=== PATIENT | female | born 1935 | race Caucasian/White ===

== ENCOUNTER 2019-04-10 12:57 | Outpatient (CLI) | payer MEDICARE, SELFPAY ==
--- NOTE | ~2019-04-10 | XR_ITS ---
EXAMINATION: XR chest 2V DATE: 04/10/2019 13:19 INDICATION: Chronic obstructive pulmonary disease. TECHNIQUE: Frontal and lateral views of the chest were obtained. COMPARISON: Chest 2 views 09/22/2017 FINDINGS: There is mild atelectasis versus scarring in the lower lung zones. No pleural effusion or p neumothorax. The heart size is normal. IMPRESSION: 1. Mild atelectasis versus scarring in the lower lung zones. Reviewed, dictated and finalized at location A. [employer]OR
== END 2019-04-10 12:58 | disposition home or self-care (01) ==
LOC: CHSIMG 13:02
PROVIDERS: PCP Internal Medicine; Visit Provider Internal Medicine
DX: J44.9 Chronic obstructive pulmonary disease, unspecified (principal)
CPT/HCPCS: 71046

== ENCOUNTER 2019-10-26 08:58 | Emergency (ER) | payer MEDICARE, SELFPAY ==
--- NOTE | ~2019-10-26 | CT_ITS ---
EXAMINATION: CT lumbar spine [facility] EXAM DATE: 10/26/2019 11:21 INDICATION: Low back pain radiating down right leg. TECHNIQUE: Spiral CT of the lumbar spine was performed without contrast. Axial, coronal and sagittal images were reviewed. The dose-length product (DLP) for this examination was 1294.99 mGy-cm. The exposure was tailored according to patient size (auto mA exposure control), and iterative reconstruct ion (ASIR) was used as additional dose reduction technique. There is no prior study for comparison. FINDINGS: There is mild loss of all lumbar vertebral body heights without acute fracture line identif ied. There is 2-3 mm retrolisthesis L1 on L2, 3 mm retrolisthesis L2 on L3, 2 mm anterolisthesis L3 o n L4, 4 mm anterolisthesis L4 on L5. Mild to moderate disc disease at L3-4, L4-5 and L5-S1. Prior singh inotomies L3-L5. Sacrum is unremarkable. There is small sliding gastroesophageal hiatal hernia. Some dependent posterior airspace disease bilaterally most likely atelectasis. Normal appendix. Level by level evaluation: T12-L1: Disc does not extend beyond the endplate margin. Facet arthropathy: Mild. Neural foraminal stenosis: No stenosis. Central canal stenosis: No stenosis. L1-L2: There is a mild diffuse disc bulge. Facet arthropathy: Mild. Neural foraminal stenosis: Mild to moderate left, mild right. Central canal stenosis: Mild. L2-L3: There is a moderate diffuse disc bulge. Facet arthropathy: Moderate. Neural foraminal stenosis: Moderate right, mild to moderate left. Central canal stenosis: Moderate. L3-L4: There is a moderate diffuse disc bulge. Facet arthropathy: Moderate to severe. Neural foraminal stenosis: Moderate to severe left, moderate right. Central canal stenosis: Moderate to severe. L4-L5: There is a moderate diffuse disc bulge. Facet arthropathy: Severe. Neural foraminal stenosis: Moderate to severe bilateral. Central canal stenosis: Moderate to severe. L5-S1: There is a mild diffuse disc bulge. Facet arthropathy: Severe. Neural foraminal stenosis: Moderate left, mild to moderate right. Central canal stenosis: Mild. IMPRESSION: 1. Overall moderate to severe lumbar spondylosis. 2. Lumbar compression fractures without acute fracture line identified. Reviewed, dictated and finalized at location B.
--- NOTE | ~2019-10-26 | US_ITS ---
EXAMINATION: US venous doppler [facility] DATE: 10/26/2019 11:35 INDICATION: Lower limb pain TECHNIQUE: Wood scale images without and with compression and Doppler images of the bilateral lower e xtremity veins were obtained. COMPARISON: None FINDINGS: The right common femoral vein, profunda femoral vein, femoral vein, popliteal vein, peroneal trunk, p osterior tibial veins, and greater saphenous vein are patent. A 2.3 cm James cyst is noted in the rig ht popliteal fossa. The left common femoral vein, profunda femoral vein, femoral vein, popliteal vein, peroneal trunk, po sterior tibial veins, and greater saphenous vein are patent. IMPRESSION: 1. Patent bilateral lower extremity veins. No evidence of deep venous thrombosis. Reviewed, dictated and finalized at location A. IMPRESSION: 1. Patent bilateral lower extremity veins. No evidence of deep venous thrombosi s.
--- NOTE | ~2019-10-26 | XR_ITS ---
EXAMINATION: XR femur RT min 2V DATE: 10/26/2019 11:20 INDICATION: Right lower extremity pain. TECHNIQUE: 2 views of right femur on 4 radiographs were obtained. COMPARISON: None. FINDINGS: Bone alignment is normal. No fracture. There is moderate right hip osteoarthritis and mild right knee osteoarthritis. No knee joint effusion. IMPRESSION: 1. Polyarticular osteoarthritis. Reviewed, dictated and finalized at location A.
--- NOTE | ~2019-10-26 | XR_ITS ---
EXAMINATION: XR tibia fibula RT 2V DATE: 10/26/2019 11:21 INDICATION: Right lower leg pain. TECHNIQUE: 2 views of right tibia and fibula on 4 radiographs were obtained. COMPARISON: None. FINDINGS: Bone alignment is normal. No fracture. There is mild tricompartmental osteoarthritis of the knee. No knee joint effusion. IMPRESSION: 1. Mild right knee osteoarthritis. Reviewed, dictated and finalized at location A.
--- NOTE | ~2019-10-26 | XR_ITS ---
EXAMINATION: XR pelvis 1-2V DATE: 10/26/2019 11:21 INDICATION: Right lower extremity pain. Low back pain. TECHNIQUE: An anteroposterior view of the pelvis was obtained. COMPARISON: CT lumbar spine 10/26/2019 FINDINGS: There is lumbar levocurvature and severe spondylosis. No fracture. There is moderate osteoa rthritis of the hips. IMPRESSION: 1. Moderate osteoarthritis of the hips. Reviewed, dictated and finalized at location A.
[2019-10-26 09:05] VITALS: BP 114/74; PULSE 103; RESP 18; TEMP 36.2; O2SAT 99
--- NOTE | 2019-10-26 09:19 | ED.EXTPRO ---
HPI - Extremity Problem General Chief complaint: Extremity Problem,Nontraumatic Stated complaint: 84YO female w/ known h.o HTN, DMII, Urinary incontinence, HLD c/o sudden onset of RLE pain while she was standing getting a cup of cofee. Denies falling, trauma or injury, states the pain was sudden onset. Related Data Home Medications Medication Instructions Recorded Confirmed aspirin 81 mg PO DAILY 10/26/19 10/26/19 carvedilol 6.25 mg PO DAILY 10/26/19 10/26/19 levothyroxine 112 mcg PO DAILY 10/26/19 10/26/19 losartan 50 mg PO DAILY 10/26/19 10/26/19 metformin 850 mg PO BID 10/26/19 10/26/19 oxybutynin chloride 5 mg PO DAILY 10/26/19 10/26/19 pravastatin 80 mg PO DAILY 10/26/19 10/26/19 sertraline 50 mg PO DAILY 10/26/19 10/26/19 Allergies Allergy/AdvReac Type Severity Reaction Status Date / Time No Known Allergies Allergy Verified 10/26/19 09:20 Review of Systems Review of Systems: All systems reviewed & are unremarkable except as noted in HPI and below Constitutional: Constitutional: Reports as per HPI and Reports no additional constitutional complaints Eyes: Eyes: Reports no additional eye complaints ENT: Reports system reviewed and no additional complaints, except as documented Cardiovascular: Cardiovascular: Reports as per HPI and Reports no additional cardiovascular complaints Respiratory: Respiratory: Reports as per HPI and Reports no additional respiratory complaints Gastrointestinal: Gastrointestinal: Reports as per HPI and Reports no additional gastrointestinal complaints Genitourinary: Genitourinary: Reports no additional female genitourinary complaints Musculoskeletal: Musculoskeletal: Reports as per HPI, Reports back pain, Reports arthralgias and Denies joint swelling Comments: RLE pain in thigh, Leg Integumentary/Breasts: Skin/Breast: Reports system reviewed and no additional complaints, except as docu Neurologic: Reports system reviewed and no additional complaints, except as documented Psychiatric: Psychiatric: Reports no additional psychiatric complaints Endocrine: Endocrine: Reports no additional endocrine complaints Hematologic/Lymphatic: Hematologic/Lymphatic: Reports no additional hematologic/lymphatic complaints Allergic/Immunologic: Allergic/Immunologic: Reports no additional allergic/immunologic complaints [facility] Past Medical History Medical History (Updated 10/26/19 @ 11:56 by Rigo Reyes MD) DMII (diabetes mellitus, type 2) Essential (primary) hypertension Hypothyroidism Major depression Mixed hyperlipidemia Osteoarthritis 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 Urinary incontinence Exam Const: General: alert; No confusion Orientation/consciousness: patient oriented x3 Limitations: No altered mental status Other: Hard of hearing HENMT: Head: normal to inspection Eyes: Conjunctivae: conjunctivae normal Pupils: Equal, round and reactive pupils present Chest: Chest palpation & inspection: normal inspection of the chest Resp: Effort & Inspection: normal respiratory effort Cardio: Rate: regular rate Rhythm: regular rhythm GI: Inspection: non-distended GI Palp: Yes Soft to palpation, No Tenderness to palpation present (GI), No Guarding due to palpation present (GI) and No Rigid due to palpation : General: Yes no CVA tenderness Back/Spine/Pelvis: Back: no CVA tenderness Neuro: General: patient oriented x3, moves all extremities and no focal motor deficits Extrem: General: normal to inspection Psych: Mental Status: mental status grossly normal Course Course Emergency Course: Labs and imaging studies reviewed. Pain better with medications. Will d/c home on Po pain meds and muscle relaxors Vital Signs Vital signs: Vital Signs Temperature 97.1 F L 10/26/19 09:05 Pulse Rate 103 H 10/26/19 09:05 Respiratory Rate 18 10/26/19 09:05 Blood Pressure 114/74 10/26/19 09:05 Pulse Oximetry 99 10/26/19 09:0
[2019-10-26] MEDS: HYDROmorphone HCL 2 MG/ML VIAL 1 MG IV PUSH (09:36)
[2019-10-26 09:42] VITALS: BP 135/75; PULSE 98; RESP 18; O2SAT 98
[2019-10-26 09:48] LABS: Basophils Absolute Auto 0.06 K/mm3 (0.00-0.10); Basophils Percent Auto 0.8 % (0.0-1.0); Eosinophils Absolute Auto 0.17 K/mm3 (0.02-0.50); Eosinophils Percent Auto 2.2 % (1.0-6.0); Hematocrit 42.4 % (35.0-42.0); Immature Granulocyte Absolute 0.07 K/mm3 (0.00-0.00); Immature Granulocyte Percent A 0.9 % (0.0-0.0); Lymphocytes Absolute Auto 0.67 K/mm3 (1.10-4.50); Lymphocytes Percent Auto 8.8 % (18.0-42.0); Mean Corpuscular Hemoglobin 31.7 pg (27.0-31.0); Mean Corpuscular Volume 96.1 fL (78.0-102.0); Mean Platelet Volume 11.1 fl (9.2-11.8); Monocytes Absolute Auto 0.57 K/mm3 (0.10-0.90); Monocytes Percent Auto 7.5 % (2.0-11.0); Neutrophils Absolute Auto 6.1 K/mm3 (1.7-7.2); Neutrophils Percent Auto 79.8 % (50.0-70.0); Platelet Count Result 205 K/mm3 (150-420); Red Blood Count 4.41 M/mm3 (4.20-5.40); Red Cell Distribution Width 13.2 % (11.6-14.4); White Blood Count 7.6 K/mm3 (4.8-10.8)
[2019-10-26 09:57] LABS: Anion Gap 5 mmol/L (8-16); Blood Urea Nitrogen 18 mg/dL (7-18); Calcium 9.3 mg/dL (8.5-10.1); Carbon Dioxide 30 mmol/L (21-32); Chloride 99 mmol/L (98-108); Estimated CRCL calculation 36 ml/min; Estimated Glomerular Filt Rate 53; Glucose 153 mg/dL (70-99); Osmolality Calculated 282 mOsm/kg (285-295); Potassium 4.7 mmol/L (3.5-5.1); Sodium 134 mmol/L (136-145)
[2019-10-26 10:03] LABS: Partial Thromboplastin Time 27.3 SEC (22.3-31.6); Prothrombin Time 10.5 Seconds (9.64-11.0)
[2019-10-26 10:14] LABS: D Dimer 0.74 mg/L (0.19-0.50)
[2019-10-26 12:25] VITALS: BP 134/83; PULSE 103; RESP 16
== END 2019-10-26 12:28 | disposition home or self-care (01) ==
PROVIDERS: Emergency Provider Family Medicine; PCP Internal Medicine
DX: M47.817 Spondylosis without myelopathy or radiculopathy, lumbosacral region (principal); S73.101A Unspecified sprain of right hip, initial encounter; M89.49 Other hypertrophic osteoarthropathy, multiple sites
CPT/HCPCS: 36415; 72131; 72170; 73552; 73590; 80048; 85025; 85380; 85610; 85730; 93970; 96374; 96375; 99283; 99284; J1170; J2060

== ENCOUNTER 2019-10-31 10:52 | Inpatient (IN) | payer MEDICARE, SELFPAY ==
--- NOTE | ~2019-10-31 | CT_ITS ---
EXAMINATION: CT pelvis w con DATE: 11/03/2019 15:12 INDICATION: Status post fall. Abdomen pain. TECHNIQUE: Computed tomography (CT) of the pelvis was performed with 100 cc Omnipaque 350 intravenous contrast. The dose-length product was 871.68 mGy-cm. Automated exposure control and iterative recons truction technique were employed. COMPARISON: Right hip series dated 11/02/2019 FINDINGS: Moderate atherosclerosis. Nonobstructive bowel gas pattern. No free air or free fluid. Jolo rashad diverticulosis without evidence for diverticulitis. No lymphadenopathy. There is moderate osteoar thritis of the hips. Pelvic rings are intact. There is severe spondylosis of the visualized lumbar sp ine with levoscoliosis. Small fat-containing umbilical hernia. IMPRESSION: 1. No acute abnormality of the pelvis. No acute fracture. 2: Severe lower lumbar spondylosis. Moderate osteoarthritis of the hips. Reviewed, dictated and finalized at location A.
--- NOTE | ~2019-10-31 | XR_ITS ---
EXAMINATION: XR hip RT 1V w AP pelvis DATE: 11/02/2019 13:49 INDICATION: Right hip pain. TECHNIQUE: An anteroposterior pelvis and single view of right hip were obtained. COMPARISON: Right femur radiographs 10/26/2019 FINDINGS: There is lumbar levoscoliosis and severe spondylosis. No fracture. There is moderate osteoa rthritis of the hips. IMPRESSION: 1. Moderate osteoarthritis of the hips. Reviewed, dictated and finalized at location B.
--- NOTE | ~2019-10-31 | CT_ITS ---
EXAMINATION: CT lumbar spine [facility] EXAM DATE: 10/31/2019 11:37 INDICATION: Frequent falls, tailbone pain. TECHNIQUE: Spiral CT lumbar spine was performed without contrast. Axial, coronal and sagittal images of the lumbar spine were reviewed. The dose-length product (DLP) for this examination was 1466.61 mGy -cm. The exposure was tailored according to patient size (auto mA exposure control), and iterative r econstruction (ASIR) was used as additional dose reduction technique. Comparison is made to prior exa mination from 10/26/2019. FINDINGS: Probable acute nondisplaced fracture through the S5 segment of the sacrum (axial images 124-128). Aga in there is mild loss of all lumbar vertebral body heights. Mid and lower lumbar posterior surgical c hanges. Advanced lumbar facet arthropathy. There is no evidence of acute lumbar fracture. There is no disc space widening or traumatic vertebral body subluxation suspected. Paraspinal soft tissue is unremarkable. Vacuum disc phenomenon L3-S1. There is 4 mm anterolisthesis L4 on L5. Mild lumbar levo scoliosis. A detailed level by level evaluation of spondylosis can be added as addendum if requested. IMPRESSION: 1. Probable acute nondisplaced S5 segment fracture. 2. Mild lumbar compression fractures unchanged. 3. Advanced lumbar arthropathy. Reviewed, dictated and finalized at location A.
--- NOTE | ~2019-10-31 | MR_ITS ---
EXAMINATION: MR lumbar spine wo con DATE: 11/03/2019 11:26 INDICATION: Right lower back pain. Right-sided radiculopathy. TECHNIQUE: Magnetic resonance imaging (MRI) of the lumbar spine was performed without intravenous con trast. Sequences included sagittal T2-weighted FSE and sagittal T1-weighted FSE. At patient's request the study was terminated prior to completion of the sagittal T2-weighted FS FSE and axial T2-weighte d FSE sequences which mildly limits evaluation. COMPARISON: None FINDINGS: 20 degree lumbar levoscoliosis. 3 mm retrolisthesis L2 on L3. 2 mm anterolisthesis L3 on L4 and 4 mm anterolisthesis L4 on L5. Vertebral body heights are normal. There is mild fibrovascular degenerative endplate changes at several levels. Small T1 and T2 hyperintense hemangioma T12. Marrow signal is ot herwise unremarkable. No acute fracture. Severe right-sided disc height loss at L3-L4, severe left-si ded disc height loss at L5-S1, moderate disc height loss at L4-L5. Mild disc height loss at L2-L3. Th ere are annular fissures at each of these levels. Chronic mild vertebral body height loss with centra l endplate depression at the majority of the endplates from the superior endplate of L1 through the i nferior endplate of L5. The conus medullaris terminates at L1-L2. There is normal signal in the cauda l spinal cord. Prominent sigmoid diverticulosis. The following disc levels are specifically discussed : T12-L1: Small central disc protrusion. There is mild bilateral facet joint osteoarthritis. There is n o neural foraminal stenosis. There is no central canal stenosis. L1-L2: Disc is mildly bulging. There is mild bilateral facet joint osteoarthritis. There is mild left neural foraminal stenosis. There is mild central canal stenosis. L2-L3: Disc is bulging. There is hypertrophy of the ligamentum flavum. There is moderate bilateral fa cet joint osteoarthritis. There is moderate bilateral neural foraminal stenosis. There is mild to mod erate central canal stenosis. L3-L4: Disc extrusion extending from foraminal zone to foraminal zone with disc material extending a few millimeters cephalad to the level of the inferior endplate of L3. There is severe bilateral facet joint osteoarthritis. There is moderate left and moderate to severe right neural foraminal stenosis. There is mild central canal stenosis. L4-L5: Disc is mildly bulging with superimposed central to right foraminal zone disc extrusion with d isc material extending a few millimeters cephalad to the level of the inferior endplate of L4. There is severe bilateral facet joint osteoarthritis. There is moderate bilateral neural foraminal stenosis . There is mild central canal stenosis. L5-S1: Disc is mildly bulging with superimposed left subarticular zone disc protrusion. There is gato re bilateral facet joint osteoarthritis. There is moderate left and mild to moderate right neural for aminal stenosis. There is no central canal stenosis. IMPRESSION: 1. 20 degrees lumbar levoscoliosis and severe spondylosis. Reviewed, dictated and finalized at location B.
--- NOTE | ~2019-10-31 | XR_ITS ---
XR chest 2V 11/01/2019 16:27 Indication: Conductive cough Procedure: 2 view chest Comparison: 04/10/2019 Findings: Cardiomegaly. There are bibasilar infiltrates, left greater than right. No pleural effusion , suspicious pulmonary nodules or pneumothorax. No acute osseous abnormality. Impression: 1: Bibasilar infiltrates, left greater than right. Differential diagnosis includes atelectasis, pneum onia and mild edema. Reviewed, dictated and finalized at location A. Impression: 1: Bibasilar infiltrates, left greater than right. Differential diagnosis inclu nataliya atelectasis, pneumonia and mild edema.
--- NOTE | 2019-10-31 11:03 | ECG_ITS ---
Measurements Intervals [place] Rate: 84 P: 103 TX: 215 QRS: -52 QRSD: 117 T: 60 QT: 365 QTc: 433 Interpretive Statements SINUS RHYTHM WITH FIRST DEGREE AV BLOCK LOW QRS VOLTAGE IN PRECORDIAL LEADS LEFT ANTERIOR FASCICULAR BLOCK BASELINE ARTIFACT- I, III, AVR, AVL, AVF ABNORMAL ECG Electronically Signed On 10-31-2019 11:22:09 CDT by Doug Keen D.O.
[2019-10-31 11:10] VITALS: BP 114/74; PULSE 78; RESP 16; TEMP 36.7; O2SAT 91
[2019-10-31 11:26] LABS: Hemoglobin 13.9 g/dL (11.7-13.8); Mean Corpuscular HGB Conc 33.1 g/dL (32.0-36.0); Mean Corpuscular Hemoglobin 31.4 pg (27.0-31.0); Mean Corpuscular Volume 94.8 fL (78.0-102.0); Mean Platelet Volume 11.1 fl (9.2-11.8); Platelet Count Result 205 K/mm3 (150-420); Red Blood Count 4.43 M/mm3 (4.20-5.40); Red Cell Distribution Width 13.2 % (11.6-14.4)
[2019-10-31 11:46] LABS: Alanine Aminotransferase 16 U/L (14-59); Albumin Level 3.5 g/dL (3.4-5.0); Alkaline Phosphatase 53 U/L (46-116); Anion Gap 7 mmol/L (8-16); Aspartate Amino Transferase 18 U/L (15-37); Bilirubin,Total 0.9 mg/dL (0.00-1.00); Blood Urea Nitrogen 21 mg/dL (7-18); Calcium 9.3 mg/dL (8.5-10.1); Carbon Dioxide 26 mmol/L (21-32); Chloride 93 mmol/L (98-108); Estimated CRCL calculation 33 ml/min; Estimated Glomerular Filt Rate 45; Glucose 136 mg/dL (70-99); Osmolality Calculated 267 mOsm/kg (285-295); Potassium 4.8 mmol/L (3.5-5.1); Sodium 126 mmol/L (136-145); Total Protein 7.4 g/dL (6.4-8.2)
[2019-10-31 11:58] LABS: Creatine Kinase 104 U/L (26-192); Magnesium 1.2 mg/dL (1.8-2.4); Troponin I < 0.02 ng/mL (0.00-0.056)
[2019-10-31 13:15] VITALS: BMI 31.6
--- NOTE | 2019-10-31 13:55 | PC.NURSE ---
Admitted for frequent falls to room 208, fell tuesday injuring coccyx, fell again on tuesday and today, was to go to [place] today to see oncology for release after tx for anal cancer, couldn't sit in car due to tailbone pain, diagnosed today with fracture of tailbone, oriented to room and hospital procedures
[2019-10-31 14:00] VITALS: BP 107/48; PULSE 83; RESP 20; TEMP 36.1; O2SAT 93
[2019-10-31 14:13] LABS: Appearance Urine Cloudy (Clear); Bilirubin Urine Negative (Negative); Color Urine Yellow (Yellow); Glucose Urine UA Negative (Negative); Ketones Urine Negative (Negative); Leukocyte Esterase Ur Negative (Negative); Nitrate Urine Positive (Negative); Protein Urine Negative (Negative); Urobilinogen Urine 0.2 mg/dL (0.2-1.0)
[2019-10-31 14:19] LABS: Add Urine Microscopic? YES; Bacteria Urine 4+ /hpf; Blood Urine Trace-Intact (Negative); Squamous Epithelial Cell Urine Few /hpf (Few)
[2019-10-31] MEDS: MAGNESIUM SULF 2 GM/WATER 50ML 2 GM/50 ML BAG IVPB (14:22)
[2019-10-31] MEDS: SODIUM CHLORIDE 0.9% IV 1,000 ML 150 ML IV CONT ×2 (14:22→22:25)
--- NOTE | 2019-10-31 14:51 | PM.IMHP ---
H&P: HPI History of Present Illness Date/Time: 10/31/19 14:51 Chief complaint: sacral fracture Narrative: Maame Morrow is a 84 year old female admitted today with c/o sudden onset of RLE pain while she was standing getting a cup of coffee. Denies falling, trauma or injury, states the pain was sudden onset. Sodium mildly low at 134. No oral anticoagulation home medications Other than a daily baby aspirin of 81 mg. INR 1.0. Pulse 90s to 100s. No fevers noted. WBC normal 7.6, with elevated H/H. Possible dehydration. D-dimer mildly elevated at 0.74 back on October 25. On 10/26/2019 she had a DVT US BLE showing: IMPRESSION:1. Patent bilateral lower extremity veins. No evidence of deep venous thrombosis. 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 With her history of osteoarthritis and spondylosis as well as falls, she has a nontraumatic muscle injury or sprain. In the ED she was started on naproxen 500 mg b.i.d. p.r.n. as well as cyclobenzaprine 5 mg t.i.d. p.r.n.. She is improving with the pain regimen in place. Will order PT and OT evaluation tomorrow. She also informed me that she wears 2-3 L O2 NC at home over night sleep and with naps - supporting oxygen orders have been placed. Polina Alegria MD is her Primary Care Provider. Review of Systems Review of Systems: All systems reviewed & are unremarkable except as noted in HPI and below Constitutional: Constitutional: Reports as per HPI, Reports body ache(s), Reports difficulty sleeping, Denies excessive sweating, Denies headache(s), Denies increased appetite, Denies snoring, Reports weakness and Denies weight gain Eyes: Eyes: Reports as per HPI, Denies exophthalmos, Denies diplopia, Denies floaters and Denies loss of peripheral vision ENT: Reports as per HPI, Reports Normal hearing present ( Hard of hearing), Denies facial pain, Denies headache(s), Denies odynophagia and Denies tinnitus Cardiovascular: Cardiovascular: Reports as per HPI, Denies chest pain, Denies diaphoresis, Denies pedal edema, Denies leg edema, Denies lightheadedness and Denies palpitations Respiratory: Respiratory: Reports as per HPI, Denies chest congestion, Denies cough and Denies snoring Gastrointestinal: Gastrointestinal: Reports as per HPI, Denies abdominal pain, Denies bloating, Denies diarrhea, Denies nausea, Denies odynophagia and Denies vomiting Genitourinary: Genitourinary: Reports as per HPI Musculoskeletal: Musculoskeletal: Denies no additional musculoskeletal complaints, Reports as per HPI, Reports abnormal gait, Reports back pain, Reports myalgias, Reports muscle weakness, Reports radiating pain into limb ( right lower back pain with radiculopathy to right leg) and Reports stiffness Integumentary/Breasts: Skin/Breast: Reports system reviewed and no additional complaints, except as docu, Reports as per HPI, Denies swelling, Reports dry skin and Denies erythema Neurologic: Reports as per HPI, Denies confusion, Denies headache(s) and Denies numbness Psychiatric: Psychiatric: Reports as per HPI and Denies anxiety Endocrine: Endocrine: Denies excessive sweating PMFSH Past Medical History Medical History DMII (diabetes mellitus, type 2) Essential (primary) hypertension Hypothyroidism Major depression Mixed hyperlipidemia Osteoarthritis 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
--- NOTE | 2019-10-31 15:09 | ED.GENADULT ---
HPI - General Adult General Chief complaint: Weakness Stated complaint: Ambulance Source: patient and family Limitations: no limitations History of Present Illness HPI narrative: This patient is an 84-year-old female who fell immediately prior to her arrival. She has been having a lot of problems recently with frequent falls. This really started last week she had a fall and then after that fall she had a lot of cramping in the back of her calves. Her daughter stay with her throughout the weekend and help her with that, however she just has not been steady on her feet. Yesterday she was getting up and she fell she did not injure herself at that time today she was getting ready to go to hematology oncology appointment for follow-up of rectal cancer, and she fell again. This time she landed on her bottom and she has a lot of pain in her tailbone. Patient did not hit her head she has no loss of consciousness and has no other symptoms. She does feel extremely weak and has been having a lot of trouble with her strength and getting her legs to hold her weight. This somewhat new for this patient Onset (ago): hour(s) Location: buttocks Severity: severe Severity scale (1-10): 10 Quality: sharp and constant Pain Consistency: constant Relieving factors: other ( not putting pressure on her bottom) Associated symptoms: denies other symptoms Related Data Home Medications Medication Instructions Recorded Confirmed aspirin 81 mg PO DAILY 10/26/19 10/31/19 carvedilol 6.25 mg PO DAILY 10/26/19 10/31/19 levothyroxine 112 mcg PO DAILY 10/26/19 10/31/19 losartan 50 mg PO DAILY 10/26/19 10/31/19 metformin 850 mg PO BID 10/26/19 10/31/19 oxybutynin chloride 5 mg PO DAILY 10/26/19 10/26/19 pravastatin 80 mg PO DAILY 10/26/19 10/31/19 sertraline 50 mg PO DAILY 10/26/19 10/31/19 Allergies Allergy/AdvReac Type Severity Reaction Status Date / Time No Known Allergies Allergy Verified 10/31/19 11:00 Review of Systems Constitutional: Constitutional: Denies chills, Denies fatigue, Denies fever(s) and Reports weakness Eyes: Eyes: Reports no additional eye complaints ENT: Reports system reviewed and no additional complaints, except as documented Cardiovascular: Cardiovascular: Reports no additional cardiovascular complaints Respiratory: Respiratory: Reports no additional respiratory complaints Gastrointestinal: Gastrointestinal: Reports no additional gastrointestinal complaints Genitourinary: Genitourinary: Reports no additional female genitourinary complaints Musculoskeletal: Musculoskeletal: Reports as per HPI, Reports back pain and Reports muscle cramps Neurologic: Reports as per HPI Comments: generalized weakness and feels like her legs would not support her Hematologic/Lymphatic: Hematologic/Lymphatic: Reports as per HPI Allergic/Immunologic: Allergic/Immunologic: Reports as per HPI PMFSH Past Medical History Medical History DMII (diabetes mellitus, type 2) Essential (primary) hypertension Hypothyroidism Major depression Mixed hyperlipidemia Osteoarthritis 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 Urinary incontinence Social History Social History Smoking packs per day: 1 Smoking cigarettes per day: 20.0 Smoking status: Current every day smoker Tobacco type: cigarettes Second hand tobacco smoke exposure: No Alcohol intake: never Substance use: never Gender identity (if verbalized by the patient): Female Spiritual care concerns: No Exam Const: General: no acute distress and alert Orientation/consciousness: patient oriented x3 HENMT: Head: normal to inspection Eyes: Conjunctivae: conjunctivae normal Pupils: Equal, round and reactive pupils present Chest: Chest palpation & inspection: normal inspection of the chest Resp: Effort & Inspection: normal
--- NOTE | 2019-10-31 17:00 | PC.NURSE ---
notified that hospital only has 500 mg Metformin. Dose verified with [facility] in [place]. New order received to give 1000 mg in am and 500 mg at 1700.
[2019-10-31] MEDS: metFORMIN HCL 500 MG TABLET PO (17:11)
--- NOTE | 2019-10-31 18:26 | PC.NURSE ---
laying down on left side, feels better on this side, pain ok right now, denies need for any pain medication at this time
[2019-11-01] VITALS: BP 117/61; PULSE 70; RESP 20; TEMP 36.4; O2SAT 96
[2019-11-01] MEDS: SODIUM CHLORIDE 0.9% IV 1,000 ML 150 ML IV CONT (05:01)
[2019-11-01 05:53] LABS: Anion Gap 4 mmol/L (8-16); Blood Urea Nitrogen 18 mg/dL (7-18); Calcium 8.1 mg/dL (8.5-10.1); Carbon Dioxide 29 mmol/L (21-32); Chloride 101 mmol/L (98-108); Estimated CRCL calculation 39 ml/min; Estimated Glomerular Filt Rate 48; Glucose 104 mg/dL (70-99); Magnesium 1.6 mg/dL (1.8-2.4); Osmolality Calculated 279 mOsm/kg (285-295); Potassium 4.4 mmol/L (3.5-5.1); Sodium 134 mmol/L (136-145)
[2019-11-01 08:00] VITALS: BP 122/66; PULSE 74; RESP 16; TEMP 36.6; O2SAT 92
[2019-11-01 08:00] LABS: Basophils Absolute Auto 0.06 K/mm3 (0.00-0.10); Basophils Percent Auto 1.1 % (0.0-1.0); Eosinophils Absolute Auto 0.22 K/mm3 (0.02-0.50); Eosinophils Percent Auto 3.9 % (1.0-6.0); Hematocrit 37.5 % (35.0-42.0); Hemoglobin 12.3 g/dL (11.7-13.8); Immature Granulocyte Absolute 0.08 K/mm3 (0.00-0.00); Immature Granulocyte Percent A 1.4 % (0.0-0.0); Lymphocytes Absolute Auto 0.68 K/mm3 (1.10-4.50); Lymphocytes Percent Auto 12.2 % (18.0-42.0); Mean Corpuscular HGB Conc 32.8 g/dL (32.0-36.0); Mean Corpuscular Hemoglobin 31.8 pg (27.0-31.0); Mean Corpuscular Volume 96.9 fL (78.0-102.0); Mean Platelet Volume 11.7 fl (9.2-11.8); Monocytes Absolute Auto 0.57 K/mm3 (0.10-0.90); Monocytes Percent Auto 10.2 % (2.0-11.0); Neutrophils Percent Auto 71.2 % (50.0-70.0); Platelet Count Result 174 K/mm3 (150-420); Red Blood Count 3.87 M/mm3 (4.20-5.40); Red Cell Distribution Width 13.4 % (11.6-14.4); White Blood Count 5.6 K/mm3 (4.8-10.8)
[2019-11-01] MEDS: PRAVASTATIN SODIUM 20 MG TABLET 80 MG PO (08:31)
[2019-11-01] MEDS: LOSARTAN POTASSIUM 50 MG TABLET PO (08:32)
[2019-11-01] MEDS: LEVOTHYROXINE SODIUM 112 MCG TABLET PO (08:32)
[2019-11-01 08:33] VITALS: PULSE 85
[2019-11-01] MEDS: SERTRALINE HCL 50 MG TABLET PO (08:33)
[2019-11-01] MEDS: ASPIRIN 81 MG ENTERIC TABLET PO (08:33)
[2019-11-01] MEDS: metFORMIN HCL 500 MG TABLET 1000 MG PO (08:33)
[2019-11-01] MEDS: carvediloL 6.25 MG TABLET PO (08:33)
[2019-11-01 09:00] VITALS: BP 122/66; PULSE 74
[2019-11-01] MEDS: MAGNESIUM SULF 2 GM/WATER 50ML 2 GM/50 ML BAG IVPB (10:29)
[2019-11-01] MEDS: guaiFENesin 12 HR 600 MG TABCR PO (12:07)
[2019-11-01] MEDS: ONDANSETRON INJ 4 MG/2 ML VIAL IV PUSH (12:52)
--- NOTE | 2019-11-01 13:04 | PC.NURSE ---
up in chair ate 100% of lunch. sm emesis pf undigested food. prn given. see mar. rfeuses oral meds at this time. back in bed. o2 applies while in bed. will not wear if up in chair. claims only when seeping.
--- NOTE | 2019-11-01 13:30 | PM.IMPN ---
Progress Note: A&P Assessment and Plan (1) Osteoarthritis: Qualifiers: Osteoarthritis location: multiple joints Osteoarthritis type: primary Qualified Code(s): M89.49 - Other hypertrophic osteoarthropathy, multiple sites Code(s): M19.90 - Unspecified osteoarthritis, unspecified site Status: Acute Assessment and Plan: history of spondylosis likely inflamed and painful due to repetitive falls within just a few days apply ice to relieve inflammation rest may benefit from having a scheduled pain medication a discharge PT and OT evaluation Roho cushion needs ordered for relief and protection in chair and when sitting. naproxen for further inflammation relief and pain control p.r.n. 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 naproxen for further inflammation relief and pain control p.r.n. cyclobenzaprine for any muscle spasms if pain is not improved in 1-2 weeks, consider further imaging needs to follow-up with primary care provider and/or interior decorator painting after discharge (3) Hyponatremia: Code(s): E87.1 - Hypo-osmolality and hyponatremia Status: Acute Assessment and Plan: sodium level was low at 126 at admission, then today her sodium levels 134. Ordered orthostatic blood pressure check encourage improved oral hydration and improved oral nutrition replenish with normal saline at 150 mils an hour continuous IV fluids - stopped her IVFs. (4) Hypomagnesemia: Code(s): E83.42 - Hypomagnesemia Status: Acute Assessment and Plan: magnesium at her ED admission was 1.2 replenished with 2 g of IV magnesium improved to a Mag level of 1.6, ordered another 2 g of IV Mag today will repeat Mag level for the morning labs regular diet ordered in place (5) Fall: Code(s): W19.XXXA - Unspecified fall, initial encounter Status: Acute Assessment and Plan: swing bed rehab candidate has had multiple falls at home, including TuesdayOctober 25, leg cramps over the weekend, fell TuesdayOctober 28 as well as today TuesdayOctober [address] lumbar spine wo con EXAM DATE: 10/31/2019 11:37 with FINDINGS:Probable acute nondisplaced fracture through the S5 segment of the sacrum (axial images 124-128). Again there is mild loss of all lumbar vertebral body heights. Mid and lower lumbar posterior surgical changes. Advanced lumbar facet arthropathy. There is no evidence of acute lumbar fracture. There is no disc space widening or traumatic vertebral body subluxation suspected. Paraspinal soft tissue is unremarkable. Vacuum disc phenomenon L3-S1. There is 4 mm anterolisthesis L4 on L5. Mild lumbar levoscoliosis. A detailed level by level evaluation of spondylosis can be added as addendum if requested. IMPRESSION:1. Probable acute nondisplaced S5 segment fracture. 2. Mild lumbar compression fractures unchanged. 3. Advanced lumbar arthropathy. fall precautions monitor overnight rehydrate with IV fluids to prevent further dehydration and treat dehydration replenish electrolytes discuss with family if home needs to be evaluated for safety and adjustments made such as removing loose rugs, controlling pets (6) UTI (urinary tract infec
[2019-11-01] MEDS: MAGNESIUM OXIDE 400 MG TABLET PO ×2 (14:55→17:04)
[2019-11-01] MEDS: CYCLOBENZAPRINE HCL 5 MG TABLET PO (14:55)
[2019-11-01 15:48] VITALS: BP 130/74; PULSE 78
[2019-11-01 16:00] VITALS: BP 134/75; PULSE 78; RESP 20; TEMP 36.6; O2SAT 93
[2019-11-01] MEDS: metFORMIN HCL 500 MG TABLET PO (17:04)
[2019-11-01] MEDS: NAPROXEN 250 MG TABLET 500 MG PO (17:38)
[2019-11-01] MEDS: guaiFENesin 12 HR 600 MG TABCR 1200 MG PO (20:23)
[2019-11-01] MEDS: FLUTICASONE PROPIONATE 0.05% NA SPR 16 GM BTL (*BKC) 1 SPRAY NASAL (20:24)
[2019-11-02] VITALS (10 sets, daily range): BP systolic 112–125; BP diastolic 42–50; PULSE 61–100; RESP 18–22; TEMP 36.4–36.6; O2SAT 85–94
[2019-11-02] MEDS: LEVOTHYROXINE SODIUM 112 MCG TABLET PO (05:50)
[2019-11-02 08:35] LABS: Basophils Absolute Auto 0.07 K/mm3 (0.00-0.10); Basophils Percent Auto 1.2 % (0.0-1.0); Eosinophils Absolute Auto 0.31 K/mm3 (0.02-0.50); Eosinophils Percent Auto 5.3 % (1.0-6.0); Hematocrit 41.1 % (35.0-42.0); Hemoglobin 12.9 g/dL (11.7-13.8); Immature Granulocyte Absolute 0.09 K/mm3 (0.00-0.00); Immature Granulocyte Percent A 1.5 % (0.0-0.0); Lymphocytes Absolute Auto 0.64 K/mm3 (1.10-4.50); Lymphocytes Percent Auto 10.8 % (18.0-42.0); Mean Corpuscular HGB Conc 31.4 g/dL (32.0-36.0); Mean Corpuscular Hemoglobin 31.2 pg (27.0-31.0); Mean Corpuscular Volume 99.3 fL (78.0-102.0); Mean Platelet Volume 11.2 fl (9.2-11.8); Monocytes Absolute Auto 0.54 K/mm3 (0.10-0.90); Monocytes Percent Auto 9.2 % (2.0-11.0); Neutrophils Absolute Auto 4.3 K/mm3 (1.7-7.2); Platelet Count Result 207 K/mm3 (150-420); Red Blood Count 4.14 M/mm3 (4.20-5.40); Red Cell Distribution Width 13.5 % (11.6-14.4); White Blood Count 5.9 K/mm3 (4.8-10.8)
[2019-11-02 08:53] LABS: Alanine Aminotransferase 17 U/L (14-59); Albumin Level 3.3 g/dL (3.4-5.0); Alkaline Phosphatase 49 U/L (46-116); Anion Gap 5 mmol/L (8-16); Aspartate Amino Transferase 15 U/L (15-37); Bilirubin,Total 0.6 mg/dL (0.00-1.00); Blood Urea Nitrogen 15 mg/dL (7-18); Calcium 8.9 mg/dL (8.5-10.1); Carbon Dioxide 31 mmol/L (21-32); Chloride 98 mmol/L (98-108); Estimated CRCL calculation 41 ml/min; Estimated Glomerular Filt Rate 52; Glucose 127 mg/dL (70-99); Magnesium 1.6 mg/dL (1.8-2.4); Osmolality Calculated 280 mOsm/kg (285-295); Potassium 4.8 mmol/L (3.5-5.1); Sodium 134 mmol/L (136-145); Total Protein 7.2 g/dL (6.4-8.2)
[2019-11-02] MEDS: LIDOCAINE 5% PATCH 3 PATCH TRANSDERM (09:07)
[2019-11-02] MEDS: FLUTICASONE PROPIONATE 0.05% NA SPR 16 GM BTL (*BKC) 1 SPRAY NASAL ×2 (09:08→20:46)
[2019-11-02] MEDS: metFORMIN HCL 500 MG TABLET 1000 MG PO (09:08)
[2019-11-02] MEDS: PRAVASTATIN SODIUM 20 MG TABLET 80 MG PO (09:09)
[2019-11-02] MEDS: CYCLOBENZAPRINE HCL 5 MG TABLET PO ×2 (09:09→16:52)
[2019-11-02] MEDS: guaiFENesin 12 HR 600 MG TABCR 1200 MG PO ×2 (09:10→20:45)
[2019-11-02] MEDS: carvediloL 6.25 MG TABLET PO (09:10)
[2019-11-02] MEDS: SERTRALINE HCL 50 MG TABLET PO (09:10)
[2019-11-02] MEDS: LOSARTAN POTASSIUM 50 MG TABLET PO (09:10)
[2019-11-02] MEDS: ASPIRIN 81 MG ENTERIC TABLET PO (09:10)
[2019-11-02] MEDS: LORATADINE 10 MG TABLET PO (09:10)
[2019-11-02] MEDS: MAGNESIUM OXIDE 400 MG TABLET PO ×3 (09:11→16:52)
--- NOTE | 2019-11-02 10:56 | PM.IMPN ---
Progress Note: A&P Assessment and Plan (1) Osteoarthritis: Qualifiers: Osteoarthritis location: multiple joints Osteoarthritis type: primary Qualified Code(s): M89.49 - Other hypertrophic osteoarthropathy, multiple sites Code(s): M19.90 - Unspecified osteoarthritis, unspecified site Status: Acute Assessment and Plan: history of spondylosis likely inflamed and painful due to repetitive falls within just a few days apply ice to relieve inflammation rest may benefit from having a scheduled pain medication a discharge PT and OT evaluation Roho cushion needs ordered for relief and protection in chair and when sitting. naproxen for further inflammation relief and pain control p.r.n. 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 naproxen for further inflammation relief and pain control p.r.n. cyclobenzaprine for any muscle spasms if pain is not improved in 1-2 weeks, consider further imaging needs to follow-up with primary care provider and/or painter interior finish after discharge (3) Hyponatremia: Code(s): E87.1 - Hypo-osmolality and hyponatremia Status: Acute Assessment and Plan: IMPROVED. sodium level was low at 126 at admission, then today her sodium levels 134 for the last 24 hours. Ordered orthostatic blood pressure check ( lying and sitting blood pressures are stable with no change, no standing blood pressures noted in vital signs) encourage improved oral hydration and improved oral nutrition replenish with normal saline at 150 mils an hour continuous IV fluids - stopped her IVFs, continuing to encourage patient to take in enough adequate oral hydration herself. (4) Hypomagnesemia: Code(s): E83.42 - Hypomagnesemia Status: Acute Assessment and Plan: ACUTE. Unresolved. magnesium at her ED admission was 1.2, replenished with 2 g of IV magnesium improved to a Mag level of 1.6, ordered another 2 g of IV Mag yesterday for a 2nd day her magnesium has remained at 1.6 despite both IV and oral replenishment, ordered 4 g of IV Mag today. continue oral Mag TID repeated Mag level with the morning BMP labs regular diet ordered in place (5) Fall: Code(s): W19.XXXA - Unspecified fall, initial encounter Status: Acute Assessment and Plan: swing bed rehab candidate has had multiple falls at home, including TuesdayOctober 25, leg cramps over the weekend, fell TuesdayOctober 28 as well as today TuesdayOctober 30 PT OT evaluation fall precautions uncontrolled pain - titrating pain medications and therapies rehydrated with IV fluids to treat dehydration - encouraging oral hydration now replenishing electrolytes - to avoid falls discuss with family if home needs to be evaluated for safety and adjustments made such as removing loose rugs, controlling pets CT lumbar spine wo con EXAM DATE: 10/31/2019 11:37 with FINDINGS:Probable acute nondisplaced fracture through the S5 segment of the sacrum (axial images 124-128). Again there is mild loss of all lumbar vertebral body heights. Mid and lower lumbar posterior surgical changes. Advanced lumbar facet arthropathy. There is no evidence of acute lumbar fracture. There is no disc space widen
[2019-11-02] MEDS: MAGNESIUM SULF 4 GM/WATER100ML 4 GM/100 ML BAG IVPB (11:55)
[2019-11-02] MEDS: IPRATROPIUM 0.5 MG/ALBUTEROL SULFATE 2.5 MG AMPUL.NEB 3 ML INHALATION ×2 (12:24→17:55)
[2019-11-02] MEDS: NAPROXEN 250 MG TABLET 500 MG PO (13:08)
[2019-11-02] MEDS: metFORMIN HCL 500 MG TABLET PO (16:53)
[2019-11-03] VITALS: BP 112/55; PULSE 78; RESP 20; TEMP 36.3; O2SAT 91
--- NOTE | 2019-11-03 01:39 | PM.EVENT ---
Event Note Event Note Event Note: For 11/02/19: I have examined the patient and reviewed chart. I discussed the patient's care with A Fadi RICO and agree with her assessment and plan.
[2019-11-03 05:49] LABS: Anion Gap 6 mmol/L (8-16); Blood Urea Nitrogen 20 mg/dL (7-18); Calcium 8.7 mg/dL (8.5-10.1); Carbon Dioxide 28 mmol/L (21-32); Chloride 100 mmol/L (98-108); Estimated CRCL calculation 40 ml/min; Estimated Glomerular Filt Rate 51; Glucose 116 mg/dL (70-99); Magnesium 1.9 mg/dL (1.8-2.4); Osmolality Calculated 281 mOsm/kg (285-295); Sodium 134 mmol/L (136-145)
[2019-11-03] MEDS: LEVOTHYROXINE SODIUM 112 MCG TABLET PO (06:05)
[2019-11-03] MEDS: IPRATROPIUM 0.5 MG/ALBUTEROL SULFATE 2.5 MG AMPUL.NEB 3 ML INHALATION (06:05)
[2019-11-03 06:19] VITALS: PULSE 80; RESP 20
[2019-11-03 06:25] VITALS: PULSE 82; RESP 20
[2019-11-03 07:55] VITALS: BP 108/72; PULSE 73; RESP 18; TEMP 36.5; O2SAT 94
[2019-11-03] MEDS: CYCLOBENZAPRINE HCL 5 MG TABLET PO (10:02)
[2019-11-03] MEDS: PRAVASTATIN SODIUM 20 MG TABLET 80 MG PO (10:03)
[2019-11-03 10:04] VITALS: PULSE 73
[2019-11-03] MEDS: MAGNESIUM OXIDE 400 MG TABLET PO ×2 (10:04→14:00)
[2019-11-03] MEDS: SERTRALINE HCL 50 MG TABLET PO (10:04)
[2019-11-03] MEDS: carvediloL 6.25 MG TABLET PO (10:04)
[2019-11-03] MEDS: LOSARTAN POTASSIUM 50 MG TABLET PO (10:04)
[2019-11-03] MEDS: guaiFENesin 12 HR 600 MG TABCR 1200 MG PO (10:04)
[2019-11-03] MEDS: LIDOCAINE 5% PATCH 3 PATCH TRANSDERM (10:05)
[2019-11-03] MEDS: metFORMIN HCL 500 MG TABLET 1000 MG PO (10:05)
[2019-11-03] MEDS: ASPIRIN 81 MG ENTERIC TABLET PO (10:05)
[2019-11-03] MEDS: FLUTICASONE PROPIONATE 0.05% NA SPR 16 GM BTL (*BKC) 1 SPRAY NASAL (10:05)
[2019-11-03] MEDS: LORATADINE 10 MG TABLET PO ×2 (10:07→10:24)
[2019-11-03 10:30] LABS: Hematocrit 38.8 % (35.0-42.0); Hemoglobin 12.4 g/dL (11.7-13.8); Mean Corpuscular Hemoglobin 31.5 pg (27.0-31.0); Mean Corpuscular Volume 98.5 fL (78.0-102.0); Mean Platelet Volume 11.7 fl (9.2-11.8); Platelet Count Result 196 K/mm3 (150-420); Red Blood Count 3.94 M/mm3 (4.20-5.40); Red Cell Distribution Width 13.5 % (11.6-14.4); White Blood Count 5.4 K/mm3 (4.8-10.8)
[2019-11-03 10:58] LABS: Alanine Aminotransferase 17 U/L (14-59); Albumin Level 3.2 g/dL (3.4-5.0); Alkaline Phosphatase 50 U/L (46-116); Aspartate Amino Transferase 18 U/L (15-37); Bilirubin Direct 0.2 mg/dL (0-0.2); Bilirubin,Total 0.5 mg/dL (0.00-1.00); Total Protein 6.3 g/dL (6.4-8.2)
--- NOTE | 2019-11-03 11:13 | PM.EVENT ---
Event Note Event Note Event Note: Patient was unable to tolerate the MRI today. She is refusing she is refusing to repeat. <ESTEFANIA Jaeger-C - Last Filed: 11/03/19 11:14>
--- NOTE | 2019-11-03 14:30 | PC.NURSE ---
Patient sleeping quietly in bed on left side. Call light in reach. Denies any needs at this time.
--- NOTE | 2019-11-03 15:17 | P.DS_ITS ---
DS: Admitting Diagnosis Admitting Diagnosis Admitting Diagnosis: sacral fracture <[facility] - Last Filed: 11/03/19 15:32> DS: Discharge Diagnosis Discharge Diagnosis (1) Osteoarthritis: Qualifiers: Osteoarthritis location: multiple joints Osteoarthritis type: primary Qualified Code(s): M89.49 - Other hypertrophic osteoarthropathy, multiple sites <[facility] - Last Filed: 11/03/19 15:32> Code(s): M19.90 - Unspecified osteoarthritis, unspecified site <Brianda UrielCODEY [facility]Prov[facility] - Last Filed: 11/03/19 15:32> Status: Acute <AJ Jaeger - Last Filed: 11/03/19 15:32> Assessment and Plan: * history of spondylosis * Transitioning to swing bed * Continue naproxen ,Flexeril and pain medication with lidocaine patch * CT of the abdomen pelvis * Hip x-ray indicatesModerate osteoarthritis of the hips. * Lumbar spine MRI partially completed patient cannot tolerate * Pelvis CT pending * CT of the lumbar indicates-Probable acute nondisplaced S5 segment fracture. Mild lumbar compression fractures unchanged.Advanced lumbar arthropathy. 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 * Lumbar spine MRI partially completed patient cannot tolerate * Pelvis CT pending * CT of the lumbar indicates-Probable acute nondisplaced S5 segment fracture. Mild lumbar compression fractures unchanged.Advanced lumbar arthropathy. <[facility] - Last Filed: 08/29/20 15:32> (3) Hyponatremia: Code(s): E87.1 - Hypo-osmolality and hyponatremia <WOLF Jaeger - Last Filed: 11/03/19 15:32> Status: Acute <WOLF Jaeger - Last Filed: 11/03/19 15:32> Assessment and Plan: * Improving * Sodium 134 continue hydration <WOLF Jaeger - Last Filed: 11/03/19 15:32> (4) Hypomagnesemia: Code(s): E83.42 - Hypomagnesemia <AJ JaegerC - Last Filed: 11/03/19 15:32> Status: Acute <WOLF Jaeger - Last Filed: 11/03/19 15:32> Assessment and Plan: * Resolved * Continue supplements <WOLF Jaeger - Last Filed: 11/03/19 15:32> (5) Fall: Code(s): W19.XXXA - Unspecified fall, initial encounter <WOLF Jaeger - Last Filed: 11/03/19 15:32> Status: Acute <WOLF Jaeger - Last Filed: 11/03/19 15:32> Assessment and Plan: * Will transition to swing bed * has had multiple falls at home, including TuesdayOctober 25, leg cramps over the weekend, fell TuesdayOctober 28 as well as today TuesdayOctober 30 * CT lumbar spine wo con EXAM DATE: 10/31/2019 11:37 with FINDINGS:Probable acute nondisplaced fracture through the S5 segment of the sacrum (axial images 124-128). Again there is mild loss of all lumbar vertebral body heights. Mid and lower lumbar posterior surgical changes. Advanced lumbar facet arthropathy. <WOLF Jaeger - Last Filed: 11/03/19 15:32> (6) UTI (urinary tract
--- NOTE | 2019-11-03 15:17 | PM.DS ---
DS: Admitting Diagnosis Admitting Diagnosis Admitting Diagnosis: sacral fracture <Selwynrenee UrielCODEY [facility]In[facility] - Last Filed: 11/03/19 15:32> DS: Discharge Diagnosis Discharge Diagnosis (1) Osteoarthritis: Qualifiers: Osteoarthritis location: multiple joints Osteoarthritis type: primary Qualified Code(s): M89.49 - Other hypertrophic osteoarthropathy, multiple sites <Brianda TrevinoGregory Alston [facility] - Last Filed: 11/03/19 15:32> Code(s): M19.90 - Unspecified osteoarthritis, unspecified site <Brianda TrevinoGregory Alston [facility] - Last Filed: 11/03/19 15:32> Status: Acute <Selwynrenee UrielCODEY PruittP- - Last Filed: 11/03/19 15:32> Assessment and Plan: history of spondylosis Transitioning to swing bed Continue naproxen ,Flexeril and pain medication with lidocaine patch CT of the abdomen pelvis Hip x-ray indicatesModerate osteoarthritis of the hips. Lumbar spine MRI partially completed patient cannot tolerate Pelvis CT pending CT of the lumbar indicates-Probable acute nondisplaced S5 segment fracture. Mild lumbar compression fractures unchanged.Advanced lumbar arthropathy. 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 Lumbar spine MRI partially completed patient cannot tolerate Pelvis CT pending CT of the lumbar indicates-Probable acute nondisplaced S5 segment fracture. Mild lumbar compression fractures unchanged.Advanced lumbar arthropathy. <Brianda UrielGregory Alston ST[facility] UP COMEDIAN-C - Last Filed: 11/03/19 15:32> (3) Hyponatremia: Code(s): E87.1 - Hypo-osmolality and hyponatremia <ESTEFANIA Jaeger-C - Last Filed: 11/03/19 15:32> Status: Acute <WOLF Jaeger - Last Filed: 11/03/19 15:32> Assessment and Plan: Improving Sodium 134 continue hydration <ESTEFANIA Jaeger-C - Last Filed: 11/03/19 15:32> (4) Hypomagnesemia: Code(s): E83.42 - Hypomagnesemia <ESTEFANIA Jaeger-C - Last Filed: 11/03/19 15:32> Status: Acute <ESTEFANIA Jaeger-C - Last Filed: 11/03/19 15:32> Assessment and Plan: Resolved Continue supplements <ESTEFANIA Jaeger-C - Last Filed: 11/03/19 15:32> (5) Fall: Code(s): W19.XXXA - Unspecified fall, initial encounter <WOLF Jaeger - Last Filed: 11/03/19 15:32> Status: Acute <AJ JaegerC - Last Filed: 11/03/19 15:32> Assessment and Plan: Will transition to swing bed has had multiple falls at home, including TuesdayOctober 25, leg cramps over the weekend, fell TuesdayOctober 28 as well as today TuesdayOctober 30 CT lumbar spine wo con EXAM DATE: 10/31/2019 11:37 with FINDINGS:Probable acute nondisplaced fracture through the S5 segment of the sacrum (axial images 124-128). Again there is mild loss of all lumbar vertebral body heights. Mid and lower lumbar posterior surgical changes. Advanced lumbar facet arthropathy. <ESTEFANIA Jaeger-C - Last Filed: 11/03/19 15:32> (6) UTI (urinary tract infection): Code(s): N39.0 - Urinary tract infection, site not specified <ESTEFANIA Jaeger-C - Last Filed: 11/03/19 15:32> Status: Acute <ESTEFANIA Jaeger-Mati - Last Filed: 11/03/19 15:32> Assessment and Plan: UA culture indicates gram-negative bacillus isolation Continue Rocephin and to sensitivity returns
== END 2019-11-03 15:11 | disposition swing bed (61) | DRG 552 ==
LOC: CHSED 10:55 → CHS2ND 12:42
PROVIDERS: Nurse Practitioner; Admitting Provider Emergency Medicine; Emergency Provider Emergency Medicine; PCP Internal Medicine; Visit Provider Emergency Medicine
DX: S32.19XA Other fracture of sacrum, initial encounter for closed fracture (principal); E83.42 Hypomagnesemia; E87.1 Hypo-osmolality and hyponatremia; E11.9 Type 2 diabetes mellitus without complications; E03.9 Hypothyroidism, unspecified; E78.5 Hyperlipidemia, unspecified; M47.817 Spondylosis without myelopathy or radiculopathy, lumbosacral region; R29.6 Repeated falls; F17.210 Nicotine dependence, cigarettes, uncomplicated; F32.9 Major depressive disorder, single episode, unspecified; Z85.048 Personal history of other malignant neoplasm of rectum, rectosigmoid junction, and anus; W19.XXXA Unspecified fall, initial encounter; N39.0 Urinary tract infection, site not specified; I10 Essential (primary) hypertension; K57.90 Diverticulosis of intestine, part unspecified, without perforation or abscess without bleeding; M19.90 Unspecified osteoarthritis, unspecified site; R05 Cough; Z91.81 History of falling
CPT/HCPCS: 36415; 71046; 72131; 72148; 72193; 73501; 80048; 80053; 80076; 81001; 82550; 83735; 84484; 85025; 85027; 87077; 87086; 87088; 87186; 93005; 94640; 97110; 97161; 97165; 97530; 99284; 99285; A9270; J0696; J2405; J3475; J7030; Q9965

== ENCOUNTER 2019-11-03 15:12 | Inpatient (IN) | payer MEDICARE, SELFPAY ==
--- NOTE | ~2019-11-03 | CT_ITS ---
EXAMINATION: CT brain wo con INDICATION: Altered mental status COMPARISON: None TECHNIQUE: Standard unenhanced head CT. The dose-length product (DLP) was 605.33 mGy-cm. The mA was a djusted according to patient size. Iterative reconstruction technique was employed. FINDINGS: There is no acute intraparenchymal hemorrhage. No evidence of mass lesion. No evidence of a cute infarction. There is moderate periventricular and subcortical hypodensity probably related to sm all vessel ischemic disease. There is moderate prominence of the sulci and ventricles related to cere bral atrophy. Intracranial calcified cerebral atherosclerosis is noted. There are no extra-axial ruby ections. There is no mass effect or midline shift. The orbits and soft tissues are unremarkable. The visualized sinuses and mastoid air cells are well aerated. IMPRESSION: 1. No acute intracranial abnormality. 2. Age related findings. Reviewed, dictated and finalized at location A.
[2019-11-03 15:35] VITALS: BP 145/79; PULSE 85; RESP 18; TEMP 36.2; O2SAT 92
[2019-11-03 16:09] VITALS: BMI 31.6
--- NOTE | 2019-11-03 16:16 | ADMGEN ---
This patient, Maame Morrow, was admitted to 2nd Floor Room 208-2. Patient/family oriented to hospital policies and general routines including ID bracelet, bed and alarms, visiting hours, pain management, procedures, bathroom and other care routines, personal items, smoking policy, room service/diet, and visiting hours. Valuables list has been completed. Information on how to activate the Rapid Response Team has been discussed. Patient/Family are encouraged to report perceived risks to care and to ask questions if they do not understand what they are told or what they should do. PATIENT ADMITTED TO SKILLED SWING BED NEEDING FURTHER PT/OT, IV ANTIBIOTIC THERAPY FOR UTI, AND PAIN CONTROL S/P FALLS AND SACRAL FX. PATIENT AWARE THAT SHE IS IN A SKILLED SWING BED AND CARE WILL CONTINUE WITH GOALS OF GOING BACK HOME.
--- NOTE | 2019-11-03 16:42 | PM.EVENT ---
Event Note Event Note Event Note: Right buttocks and proximal femur pain. Pt points to right ischeal region right greater trochanter where she has pain. Able to walk using walker. On exam there is an ecchymotic patch right posterior-lateral proximal thigh which is nontender. She is tender over the left ischium and medial acetabulum region. Discussed with Mare Alston ordering CT scan of pelvis to evaluate for an occult ischeal/pelvic/hip fracture. This showed 1. No acute abnormality of the pelvis. No acute fracture. Severe lower lumbar spondylosis. Moderate osteoarthritis of the hips. CT of lumbar spine was read as probable acute nondisplaced fracture through the S5 segment of the sacrum which may be the only source of this pain. Plan: Swing bed for PT,OT and pain control.
[2019-11-03 18:08] VITALS: PULSE 85; RESP 18
[2019-11-03] MEDS: MAGNESIUM OXIDE 400 MG TABLET PO (18:08)
[2019-11-03] MEDS: metFORMIN HCL 500 MG TABLET PO (18:08)
[2019-11-03] MEDS: IPRATROPIUM 0.5 MG/ALBUTEROL SULFATE 2.5 MG AMPUL.NEB 3 ML INHALATION (18:08)
[2019-11-03] MEDS: NAPROXEN 250 MG TABLET 500 MG PO (18:08)
[2019-11-03 18:15] VITALS: PULSE 90; RESP 18
[2019-11-03] MEDS: FLUTICASONE PROPIONATE 0.05% NA SPR 16 GM BTL (*BKC) 1 SPRAY NASAL (21:56)
[2019-11-03] MEDS: guaiFENesin 12 HR 600 MG TABCR 1200 MG PO (21:56)
[2019-11-03 23:20] VITALS: BP 155/84; PULSE 72; RESP 20; TEMP 36.8; O2SAT 97
[2019-11-04] VITALS (9 sets, daily range): BP systolic 121–145; BP diastolic 49–87; PULSE 24–86; RESP 18–20; TEMP 36.1–36.4; O2SAT 97
[2019-11-04] MEDS: IPRATROPIUM 0.5 MG/ALBUTEROL SULFATE 2.5 MG AMPUL.NEB 3 ML INHALATION ×3 (05:34→17:46)
[2019-11-04] MEDS: LEVOTHYROXINE SODIUM 112 MCG TABLET PO (05:35)
[2019-11-04] MEDS: CYCLOBENZAPRINE HCL 5 MG TABLET PO ×2 (08:53→17:45)
[2019-11-04] MEDS: NAPROXEN 250 MG TABLET 500 MG PO ×2 (08:53→17:44)
[2019-11-04] MEDS: PRAVASTATIN SODIUM 20 MG TABLET 80 MG PO (08:53)
[2019-11-04] MEDS: carvediloL 6.25 MG TABLET PO (08:54)
[2019-11-04] MEDS: MAGNESIUM OXIDE 400 MG TABLET PO ×3 (08:54→17:45)
[2019-11-04] MEDS: guaiFENesin 12 HR 600 MG TABCR 1200 MG PO ×2 (08:54→21:23)
[2019-11-04] MEDS: LOSARTAN POTASSIUM 50 MG TABLET 100 MG PO (08:54)
[2019-11-04] MEDS: ASPIRIN 81 MG ENTERIC TABLET PO (08:54)
[2019-11-04] MEDS: metFORMIN HCL 500 MG TABLET 1000 MG PO (08:54)
[2019-11-04] MEDS: LIDOCAINE 5% PATCH 3 PATCH TRANSDERM (08:55)
[2019-11-04] MEDS: LORATADINE 10 MG TABLET PO (08:55)
[2019-11-04] MEDS: FLUTICASONE PROPIONATE 0.05% NA SPR 16 GM BTL (*BKC) 1 SPRAY NASAL ×2 (08:55→21:24)
[2019-11-04] MEDS: SERTRALINE HCL 50 MG TABLET PO (09:00)
--- NOTE | 2019-11-04 12:22 | WPDREHABHP ---
H&P: HPI History of Present Illness Date/Time: 11/04/19 12:22 Chief complaint: Rehab Narrative: Maame Morrow is a 84 year old female that presented to our ED on 10/31/2019 with right lower extremity pain post fall. Patient has a past medical history of diabetes type 2 hypertension, hypothyroidism, major depression, mixed hyperlipidemia, osteoarthritis, and urinary incontinence. Imaging indicated possible acute nondisplaced S5 segment of the sacrum fracture. Patient continues to complain of right lower extremity pain. Her vital signs are 96.9, 77, 20, 97% on room air, 145/87. Patient was medically stable and transition to our swing bed rehab. patient admitted in swing bed for rehabilitation due to decreased balance decreased mobility in severe limited function endurant and/or mobility. Review of Systems Review of Systems Narrative: CONSTITUTIONAL: Denies fever, chills, sweats. EYES: Denies visual changes, redness, discharge. ENT: Denies rhinorrhea, congestion, sore throat, otalgia. CARDIOVASCULAR: Denies chest pain, palpitations, edema. RESPIRATORY: Denies dyspnea, wheezing, cough GASTROINTESTINAL: Denies abdominal pain, nausea, vomiting, diarrhea. GENITOURINARY: Denies dysuria, hematuria, abnormal discharge SKIN: Denies rash or itching. MUSCULOSKELETAL: Continues to complain of right lower extremity pain NEUROLOGIC: Denies numbness, or focal weakness. PSYCHIATRIC: Denies anxiety or depression. [facility] Social History Social History Smoking packs per day: 1 Smoking cigarettes per day: 20.0 Smoking status: Former smoker Tobacco type: cigarettes Second hand tobacco smoke exposure: No Alcohol intake: unknown Substance use: never Gender identity (if verbalized by the patient): Female Sexual Orientation (if Verbalized by the Patient): Straight or Heterosexual Spiritual care concerns: No Meds Home Medications and Allergies Home Medications Medication Instructions Recorded Confirmed Type aspirin 81 mg PO DAILY 10/26/19 11/03/19 History carvedilol 6.25 mg PO DAILY 10/26/19 11/03/19 History cyclobenzaprine 5 mg PO TID PRN #30 tablet 10/26/19 11/03/19 Rx levothyroxine 112 mcg PO DAILY 10/26/19 11/03/19 History losartan 50 mg PO DAILY 10/26/19 11/03/19 History naproxen 500 mg PO BID PRN #20 tablet 10/26/19 11/03/19 Rx pravastatin 80 mg PO DAILY 10/26/19 11/03/19 History sertraline 50 mg PO DAILY 10/26/19 11/03/19 History acetaminophen 1,000 mg PO TID@0600,1200,1800 PRN 11/03/19 11/03/19 Rx 1 Days #10 tablet ceftriaxone 1 g IV Q24H #10 ea 11/03/19 11/03/19 Rx fluticasone propionate 1 spray INTRANASAL Q12HR #10 ml 11/03/19 11/03/19 Rx guaifenesin [Mucus Relief ER] 1,200 mg PO Q12HR #10 tablet 11/03/19 11/03/19 Rx hydrocodone-acetaminophen 1 tab PO Q4H PRN 10 Days #10 tablet 11/03/19 11/03/19 Rx ipratropium-albuterol 3 ml INHALATION [id number] 10 Days 11/03/19 11/03/19 Rx #10 ml lidocaine [Lidoderm] 3 patch TRANSDERMAL DAILY 10 Days 11/03/19 11/03/19 Rx #10 each loratadine 10 mg PO QAM 10 Days #10 tablet 11/03/19 11/03/19 Rx magnesium oxide 400 mg PO TID 10 Days #30 tablet 11/03/19 11/03/19 Rx metformin [Glucophage] 1,000 mg PO DAILY@0800 1 Days #2 11/03/19 11/03/19 Rx tablet metformin [Glucophage] 500 mg PO DAILY@1700 1 Days #1 11/03/19 11/03/19 Rx tablet ondansetron HCl (PF) 4 mg IVPUSH Q6H PRN 1 Days #10 ml 11/03/19 11/03/19 Rx oxybutynin chloride 5 mg PO DAILY #10 tablet 11/03/19 11/03/19 Rx Allergies Allergy/AdvReac Type Severity Reaction Status Date / Time No Known Allergies Allergy Verified 10/31/19 11:00 Vital Signs Vital Signs - 24 hr 11/03/19 15:35 11/03/19 18:08 11/03/19 18:15 Temperature 97.1 F L Pulse Rate 85 85 90 Respiratory Rate 18 18 18 Blood Pressure 145/79 H Pulse Oximetry 92 11/03/19 23:20 11/04/19 05:30 11/04/19 05:42 Temperature 98.2 F Pulse Rate 72 85 86 Respiratory Rate 20 20 20 Blood Pressu
[2019-11-04] MEDS: metFORMIN HCL 500 MG TABLET PO (17:44)
[2019-11-05] VITALS (9 sets, daily range): BP systolic 135–157; BP diastolic 71–91; PULSE 54–80; RESP 14–22; TEMP 36–36.4; O2SAT 93–94
[2019-11-05] MEDS: IPRATROPIUM 0.5 MG/ALBUTEROL SULFATE 2.5 MG AMPUL.NEB 3 ML INHALATION ×3 (05:37→17:53)
[2019-11-05] MEDS: LEVOTHYROXINE SODIUM 112 MCG TABLET PO (05:57)
[2019-11-05] MEDS: FLUTICASONE PROPIONATE 0.05% NA SPR 16 GM BTL (*BKC) 1 SPRAY NASAL ×2 (07:59→20:57)
[2019-11-05] MEDS: ASPIRIN 81 MG ENTERIC TABLET PO (08:00)
[2019-11-05] MEDS: carvediloL 6.25 MG TABLET PO (08:00)
[2019-11-05] MEDS: metFORMIN HCL 500 MG TABLET 1000 MG PO (08:00)
[2019-11-05] MEDS: guaiFENesin 12 HR 600 MG TABCR 1200 MG PO ×2 (08:01→20:56)
[2019-11-05] MEDS: LIDOCAINE 5% PATCH 3 PATCH TRANSDERM (08:01)
[2019-11-05] MEDS: LORATADINE 10 MG TABLET PO (08:01)
[2019-11-05] MEDS: LOSARTAN POTASSIUM 50 MG TABLET 100 MG PO (08:02)
[2019-11-05] MEDS: MAGNESIUM OXIDE 400 MG TABLET PO ×3 (08:02→17:06)
[2019-11-05] MEDS: NAPROXEN 250 MG TABLET 500 MG PO ×2 (08:02→17:05)
[2019-11-05] MEDS: PRAVASTATIN SODIUM 20 MG TABLET 80 MG PO (08:03)
[2019-11-05] MEDS: SERTRALINE HCL 50 MG TABLET PO (08:03)
[2019-11-05] MEDS: HYDROmorphone HCL 2 MG/ML VIAL 0.5 MG IV PUSH (11:07)
[2019-11-05] MEDS: ONDANSETRON INJ 4 MG/2 ML VIAL IV PUSH ×2 (11:09→19:02)
--- NOTE | 2019-11-05 11:15 | PC.NURSE ---
1100 Patient daughter came in and patient woke up extreme pain right tail bone radiating down right leg. Patient anxious, screaming and carrying on about the pain. Daughter upset we aren't controlling pain. Explained to daughter and patient that a norco was given 1 hour ago. Brianda COVER MARKER in room examinee the patient. Dilaudid 0.5 mg IVP ordered and given. Also Zofran 4 mg IVP given c/o mild nausea. Patient also at this time got up to bsc using walker and contact guard assist and back with c/o of some pain, but steady on feet. Had to provide hygiene for patient.
[2019-11-05] MEDS: metFORMIN HCL 500 MG TABLET PO (17:06)
[2019-11-05] MEDS: CYCLOBENZAPRINE HCL 5 MG TABLET PO (19:02)
[2019-11-05 21:06] LABS: Glucose Point of Care 132 (65-105)
[2019-11-06] VITALS (11 sets, daily range): BP systolic 104–137; BP diastolic 51–67; PULSE 61–95; RESP 16–20; TEMP 36.1–36.6; O2SAT 92–94
[2019-11-06] MEDS: IPRATROPIUM 0.5 MG/ALBUTEROL SULFATE 2.5 MG AMPUL.NEB 3 ML INHALATION ×3 (05:32→17:49)
[2019-11-06] MEDS: LEVOTHYROXINE SODIUM 112 MCG TABLET PO (05:39)
[2019-11-06] MEDS: FLUTICASONE PROPIONATE 0.05% NA SPR 16 GM BTL (*BKC) 1 SPRAY NASAL ×2 (09:15→21:16)
[2019-11-06] MEDS: NAPROXEN 250 MG TABLET 500 MG PO ×2 (09:15→16:50)
[2019-11-06] MEDS: MAGNESIUM OXIDE 400 MG TABLET PO ×3 (09:16→16:50)
[2019-11-06] MEDS: guaiFENesin 12 HR 600 MG TABCR 1200 MG PO ×2 (09:16→21:16)
[2019-11-06] MEDS: PRAVASTATIN SODIUM 20 MG TABLET 80 MG PO (09:16)
[2019-11-06] MEDS: carvediloL 6.25 MG TABLET PO (09:17)
[2019-11-06] MEDS: ASPIRIN 81 MG ENTERIC TABLET PO (09:17)
[2019-11-06] MEDS: LORATADINE 10 MG TABLET PO (09:17)
[2019-11-06] MEDS: metFORMIN HCL 500 MG TABLET 1000 MG PO (09:17)
[2019-11-06] MEDS: LOSARTAN POTASSIUM 50 MG TABLET 100 MG PO (09:17)
[2019-11-06] MEDS: SERTRALINE HCL 50 MG TABLET PO (09:17)
[2019-11-06] MEDS: LIDOCAINE 5% PATCH 3 PATCH TRANSDERM (09:18)
--- NOTE | 2019-11-06 11:15 | PC.NURSE ---
[employer] COATING EQUIPMENT TENDER VISITS WITH PATIENT AND DAUGHTER PER DAUGHTER'S REQUEST.
--- NOTE | 2019-11-06 15:30 | PC.NURSE ---
UP WALKING IN [place] WITH PHYSICAL THERAPY.
[2019-11-06 16:33] LABS: Glucose Point of Care 141 (65-105)
[2019-11-06] MEDS: metFORMIN HCL 500 MG TABLET PO (16:51)
--- NOTE | 2019-11-06 18:32 | PC.NURSE ---
PT SLEEPING PER BED. NO DISTRESS NOTED. CALL KISER IN REACH. BED RAILS UP X3.
--- NOTE | 2019-11-06 19:30 | PC.NURSE ---
Pain in coccyx and back, worse, irritable, anxious and angry, states needs a cigarette, smoked for over 18 years and needs one, advised we could get her a nicotine patch, agreeable, wants to know how long that will take advised of process of alerting doctor, putting order in and pharmacy approval, states needs it now or will tear the room apart
--- NOTE | 2019-11-06 19:45 | PC.NURSE ---
Angry, wanting to know when the patch will be put on, advised that this was a process and that the doctor has place the order however, we are waiting for pharmacy approval, not happy with the answer given, states im gonna pull out my hair if I don't get it soon
--- NOTE | 2019-11-06 20:00 | PC.NURSE ---
Nicotine patch to left arm, patient states is that it? call light in reach of patient, remains irritable, and angry
[2019-11-06] MEDS: NICOTINE (*PBKC) 21 MG PATCH 1 PATCH TRANSDERM (20:03)
[2019-11-06 21:22] LABS: Glucose Point of Care 115 (65-105)
--- NOTE | 2019-11-06 21:35 | PC.NURSE ---
Resting in bed, no needs noted, call light in reach of patient
--- NOTE | 2019-11-06 23:30 | PC.NURSE ---
Resting in bed on left side, side rails up, call light in reach, no evidence of pain noted, resp easy and non labored
[2019-11-07] VITALS (10 sets, daily range): BP systolic 104–122; BP diastolic 58–61; PULSE 62–90; RESP 16–20; TEMP 36.1–36.9; O2SAT 89–96
--- NOTE | 2019-11-07 01:30 | PC.NURSE ---
In bed, laying on side, no distress, no evidence of discomfort noted, call light in reach
--- NOTE | 2019-11-07 02:18 | PC.NURSE ---
Hydrocodone for pain given
--- NOTE | 2019-11-07 03:26 | PC.NURSE ---
Sleeping, no evidence of pain noted
--- NOTE | 2019-11-07 05:00 | PC.NURSE ---
SBA up to bedside commode, unsteady when up,using walker and contact guard assist
[2019-11-07] MEDS: IPRATROPIUM 0.5 MG/ALBUTEROL SULFATE 2.5 MG AMPUL.NEB 3 ML INHALATION ×3 (05:31→17:45)
[2019-11-07] MEDS: LEVOTHYROXINE SODIUM 112 MCG TABLET PO (05:44)
--- NOTE | 2019-11-07 06:18 | PC.NURSE ---
Hydrocodone given for pain, has rested well since 9pm,
--- NOTE | 2019-11-07 06:46 | PC.NURSE ---
Up to BSC, no change in pain, requesting more pain medication, advised pain pill is only every 4 hours and just had one, will have to let it work, cannot repeat it at this time
[2019-11-07 07:52] LABS: Glucose Point of Care 150 (65-105)
[2019-11-07] MEDS: guaiFENesin 12 HR 600 MG TABCR 1200 MG PO ×2 (10:00→20:11)
[2019-11-07] MEDS: carvediloL 6.25 MG TABLET PO (10:01)
[2019-11-07] MEDS: metFORMIN HCL 500 MG TABLET 1000 MG PO (10:01)
[2019-11-07] MEDS: PRAVASTATIN SODIUM 20 MG TABLET 80 MG PO (10:01)
[2019-11-07] MEDS: LORATADINE 10 MG TABLET PO (10:01)
[2019-11-07] MEDS: SERTRALINE HCL 50 MG TABLET PO (10:02)
[2019-11-07] MEDS: LIDOCAINE 5% PATCH 3 PATCH TRANSDERM (10:02)
[2019-11-07] MEDS: NAPROXEN 250 MG TABLET 500 MG PO ×2 (10:02→16:15)
[2019-11-07] MEDS: ASPIRIN 81 MG ENTERIC TABLET PO (10:02)
[2019-11-07] MEDS: LOSARTAN POTASSIUM 50 MG TABLET 100 MG PO (10:02)
[2019-11-07] MEDS: MAGNESIUM OXIDE 400 MG TABLET PO ×3 (10:02→16:16)
[2019-11-07] MEDS: FLUTICASONE PROPIONATE 0.05% NA SPR 16 GM BTL (*BKC) 1 SPRAY NASAL ×2 (10:03→20:10)
[2019-11-07 11:47] LABS: Glucose Point of Care 117 (65-105)
[2019-11-07] MEDS: metFORMIN HCL 500 MG TABLET PO (16:16)
[2019-11-07] MEDS: ONDANSETRON INJ 4 MG/2 ML VIAL IV PUSH (19:12)
[2019-11-07] MEDS: CYCLOBENZAPRINE HCL 5 MG TABLET PO (19:17)
[2019-11-07] MEDS: NICOTINE (*PBKC) 21 MG PATCH 1 PATCH TRANSDERM (20:11)
--- NOTE | 2019-11-07 22:17 | PC.NURSE ---
pt sleeping, respirations even and regular, no evidence of distress noted at this time.
[2019-11-07 22:30] LABS: Glucose Point of Care 150 (65-105)
[2019-11-07 22:30] LABS: Glucose Point of Care 153 (65-105)
[2019-11-08] VITALS (10 sets, daily range): BP systolic 91–111; BP diastolic 56–69; PULSE 20–105; RESP 16–97; TEMP 35.9–36.2; O2SAT 95–97
--- NOTE | 2019-11-08 01:43 | PC.NURSE ---
pt sleeping, respirations even and regular, no evidence of distress noted at this time.
[2019-11-08] MEDS: IPRATROPIUM 0.5 MG/ALBUTEROL SULFATE 2.5 MG AMPUL.NEB 3 ML INHALATION ×3 (05:31→17:47)
[2019-11-08] MEDS: LEVOTHYROXINE SODIUM 112 MCG TABLET PO (05:44)
[2019-11-08 08:16] LABS: Glucose Point of Care 150 (65-105)
[2019-11-08] MEDS: PRAVASTATIN SODIUM 20 MG TABLET 80 MG PO (08:41)
[2019-11-08] MEDS: LIDOCAINE 5% PATCH 3 PATCH TRANSDERM (08:41)
[2019-11-08] MEDS: NAPROXEN 250 MG TABLET 500 MG PO ×2 (08:41→16:34)
[2019-11-08] MEDS: CYCLOBENZAPRINE HCL 5 MG TABLET PO ×3 (08:41→20:57)
[2019-11-08] MEDS: SERTRALINE HCL 50 MG TABLET PO (08:41)
[2019-11-08] MEDS: ASPIRIN 81 MG ENTERIC TABLET PO (08:41)
[2019-11-08] MEDS: guaiFENesin 12 HR 600 MG TABCR 1200 MG PO ×2 (08:41→20:57)
[2019-11-08] MEDS: metFORMIN HCL 500 MG TABLET 1000 MG PO (08:42)
[2019-11-08] MEDS: LOSARTAN POTASSIUM 50 MG TABLET 100 MG PO (08:42)
[2019-11-08] MEDS: LORATADINE 10 MG TABLET PO (08:42)
[2019-11-08] MEDS: carvediloL 6.25 MG TABLET PO (08:42)
[2019-11-08] MEDS: FLUTICASONE PROPIONATE 0.05% NA SPR 16 GM BTL (*BKC) 1 SPRAY NASAL ×2 (08:42→20:58)
[2019-11-08] MEDS: MAGNESIUM OXIDE 400 MG TABLET PO ×3 (08:42→16:34)
[2019-11-08 12:00] LABS: Glucose Point of Care 123 (65-105)
[2019-11-08] MEDS: ACETAMINOPHEN 500 MG TABLET 1000 MG PO (14:54)
[2019-11-08] MEDS: metFORMIN HCL 500 MG TABLET PO (16:35)
[2019-11-08 16:50] LABS: Glucose Point of Care 124 (65-105)
--- NOTE | 2019-11-08 18:20 | PC.NURSE ---
Patient resting back in bed on left side. Denies any needs at this time. Call light and belongings at side.
[2019-11-08] MEDS: NICOTINE (*PBKC) 21 MG PATCH 1 PATCH TRANSDERM (20:57)
[2019-11-08 21:10] LABS: Glucose Point of Care 125 (65-105)
[2019-11-09] VITALS (9 sets, daily range): BP systolic 91–119; BP diastolic 58–76; PULSE 46–105; RESP 18–20; TEMP 36.1–36.4; O2SAT 90–97
[2019-11-09] MEDS: IPRATROPIUM 0.5 MG/ALBUTEROL SULFATE 2.5 MG AMPUL.NEB 3 ML INHALATION ×3 (05:32→17:43)
[2019-11-09] MEDS: LEVOTHYROXINE SODIUM 112 MCG TABLET PO (05:32)
[2019-11-09 07:54] LABS: Glucose Point of Care 132 (65-105)
[2019-11-09] MEDS: metFORMIN HCL 500 MG TABLET 1000 MG PO (08:45)
[2019-11-09] MEDS: PRAVASTATIN SODIUM 20 MG TABLET 80 MG PO (08:45)
[2019-11-09] MEDS: SERTRALINE HCL 50 MG TABLET PO (08:45)
[2019-11-09] MEDS: NAPROXEN 250 MG TABLET 500 MG PO ×2 (08:45→17:12)
[2019-11-09] MEDS: LORATADINE 10 MG TABLET PO (08:45)
[2019-11-09] MEDS: guaiFENesin 12 HR 600 MG TABCR 1200 MG PO ×2 (08:45→20:13)
[2019-11-09] MEDS: ASPIRIN 81 MG ENTERIC TABLET PO (08:46)
[2019-11-09] MEDS: carvediloL 6.25 MG TABLET PO (08:46)
[2019-11-09] MEDS: LOSARTAN POTASSIUM 50 MG TABLET 100 MG PO (08:46)
[2019-11-09] MEDS: MAGNESIUM OXIDE 400 MG TABLET PO ×3 (08:46→17:12)
[2019-11-09] MEDS: LIDOCAINE 5% PATCH 3 PATCH TRANSDERM (08:46)
[2019-11-09] MEDS: FLUTICASONE PROPIONATE 0.05% NA SPR 16 GM BTL (*BKC) 1 SPRAY NASAL ×2 (08:47→20:12)
[2019-11-09] MEDS: ACETAMINOPHEN 500 MG TABLET 1000 MG PO (08:49)
[2019-11-09 11:32] LABS: Glucose Point of Care 96 (65-105)
[2019-11-09] MEDS: CYCLOBENZAPRINE HCL 5 MG TABLET PO (13:35)
--- NOTE | 2019-11-09 15:15 | PC.NURSE ---
Patient sleeping soundly in bed on left side. No distress noted. Breathing unlabored. call light within reach.
[2019-11-09] MEDS: metFORMIN HCL 500 MG TABLET PO (17:12)
[2019-11-09 17:19] LABS: Glucose Point of Care 140 (65-105)
[2019-11-09] MEDS: NICOTINE (*PBKC) 21 MG PATCH 1 PATCH TRANSDERM (20:13)
[2019-11-09 20:28] LABS: Glucose Point of Care 122 (65-105)
[2019-11-10] VITALS (8 sets, daily range): BP systolic 98–131; BP diastolic 46–76; PULSE 100–105; RESP 18–20; TEMP 35.9–36.6; O2SAT 94–96
[2019-11-10] MEDS: IPRATROPIUM 0.5 MG/ALBUTEROL SULFATE 2.5 MG AMPUL.NEB 3 ML INHALATION ×3 (05:50→17:32)
[2019-11-10] MEDS: LEVOTHYROXINE SODIUM 112 MCG TABLET PO (05:50)
[2019-11-10 07:36] LABS: Glucose Point of Care 146 (65-105)
[2019-11-10] MEDS: carvediloL 6.25 MG TABLET PO (08:41)
[2019-11-10] MEDS: NAPROXEN 250 MG TABLET 500 MG PO ×2 (08:41→16:52)
[2019-11-10] MEDS: ASPIRIN 81 MG ENTERIC TABLET PO (08:41)
[2019-11-10] MEDS: LOSARTAN POTASSIUM 50 MG TABLET 100 MG PO (08:42)
[2019-11-10] MEDS: metFORMIN HCL 500 MG TABLET 1000 MG PO (08:42)
[2019-11-10] MEDS: PRAVASTATIN SODIUM 20 MG TABLET 80 MG PO (08:42)
[2019-11-10] MEDS: SERTRALINE HCL 50 MG TABLET PO (08:43)
[2019-11-10] MEDS: LIDOCAINE 5% PATCH 3 PATCH TRANSDERM (08:43)
[2019-11-10] MEDS: LORATADINE 10 MG TABLET PO (08:43)
[2019-11-10] MEDS: MAGNESIUM OXIDE 400 MG TABLET PO ×3 (08:43→16:52)
[2019-11-10] MEDS: guaiFENesin 12 HR 600 MG TABCR 1200 MG PO ×2 (08:43→20:56)
[2019-11-10] MEDS: FLUTICASONE PROPIONATE 0.05% NA SPR 16 GM BTL (*BKC) 1 SPRAY NASAL ×2 (08:44→20:55)
[2019-11-10] MEDS: CYCLOBENZAPRINE HCL 5 MG TABLET PO (10:02)
[2019-11-10 11:39] LABS: Glucose Point of Care 99 (65-105)
--- NOTE | 2019-11-10 16:44 | PC.NURSE ---
rocephine infiltrated, stopped and saline lock removed, bandaid applied
[2019-11-10] MEDS: metFORMIN HCL 500 MG TABLET PO (16:52)
--- NOTE | 2019-11-10 17:00 | PC.NURSE ---
Remains in chair for dinner, tolerating well
[2019-11-10 17:07] LABS: Glucose Point of Care 151 (65-105)
--- NOTE | 2019-11-10 17:55 | PC.NURSE ---
Up from chair, to commode then to bed, norco given for pain, tolerated well, used walker and SBA
--- NOTE | 2019-11-10 18:17 | PC.NURSE ---
In bed resting, no complaints at this time, call light in reach, side rails up
[2019-11-10] MEDS: NICOTINE (*PBKC) 21 MG PATCH 1 PATCH TRANSDERM (20:55)
[2019-11-10 21:01] LABS: Glucose Point of Care 121 (65-105)
[2019-11-11] VITALS (8 sets, daily range): BP systolic 112–134; BP diastolic 60–82; PULSE 84–108; RESP 12–22; TEMP 36–36.6; O2SAT 93–95
[2019-11-11] MEDS: IPRATROPIUM 0.5 MG/ALBUTEROL SULFATE 2.5 MG AMPUL.NEB 3 ML INHALATION ×3 (06:29→18:02)
[2019-11-11] MEDS: LEVOTHYROXINE SODIUM 112 MCG TABLET PO (06:29)
[2019-11-11 06:48] LABS: Glucose Point of Care 138 (65-105)
--- NOTE | 2019-11-11 08:12 | PC.NURSE ---
pr yelling for mateus, upon arrival to room, pt very anxious stating I can't see pt ambling and unable to form some word, gesturing anxiously and attempting to remove o2. called Steward/Stewardess Room to room to assess, new order recieved for CT head. attempted to get set of vitals on the pt and she was unable to sit still long enough for rn to obtain VS. [id number] radt ech here to product picker pt to take for head ct.
[2019-11-11 08:37] LABS: Basophils Absolute Auto 0.07 K/mm3 (0.00-0.10); Basophils Percent Auto 0.7 % (0.0-1.0); Eosinophils Percent Auto 4.3 % (1.0-6.0); Hematocrit 43.6 % (35.0-42.0); Hemoglobin 13.9 g/dL (11.7-13.8); Immature Granulocyte Absolute 0.06 K/mm3 (0.00-0.00); Immature Granulocyte Percent A 0.6 % (0.0-0.0); Lymphocytes Absolute Auto 0.64 K/mm3 (1.10-4.50); Lymphocytes Percent Auto 6.8 % (18.0-42.0); Mean Corpuscular HGB Conc 31.9 g/dL (32.0-36.0); Mean Corpuscular Hemoglobin 31.4 pg (27.0-31.0); Mean Corpuscular Volume 98.4 fL (78.0-102.0); Mean Platelet Volume 10.8 fl (9.2-11.8); Monocytes Percent Auto 7.5 % (2.0-11.0); Neutrophils Absolute Auto 7.5 K/mm3 (1.7-7.2); Neutrophils Percent Auto 80.1 % (50.0-70.0); Platelet Count Result 246 K/mm3 (150-420); Red Blood Count 4.43 M/mm3 (4.20-5.40); Red Cell Distribution Width 13.7 % (11.6-14.4); White Blood Count 9.4 K/mm3 (4.8-10.8)
--- NOTE | 2019-11-11 08:45 | PC.NURSE ---
PT RETURNED FROM CT. PT REMAINS ANXIOUS AND RESTLESS. ASSISTED TO BED PER REQUEST.
[2019-11-11 08:48] LABS: Prothrombin Time 10.7 Seconds (9.64-11.0)
[2019-11-11 08:52] LABS: Alanine Aminotransferase 20 U/L (14-59); Albumin Level 3.5 g/dL (3.4-5.0); Alkaline Phosphatase 67 U/L (46-116); Anion Gap 6 mmol/L (8-16); Aspartate Amino Transferase 15 U/L (15-37); Bilirubin,Total 0.6 mg/dL (0.00-1.00); Blood Urea Nitrogen 28 mg/dL (7-18); Calcium 9.3 mg/dL (8.5-10.1); Carbon Dioxide 30 mmol/L (21-32); Chloride 97 mmol/L (98-108); Estimated CRCL calculation 37 ml/min; Estimated Glomerular Filt Rate 46; Glucose 165 mg/dL (70-99); Osmolality Calculated 285 mOsm/kg (285-295); Potassium 4.9 mmol/L (3.5-5.1); Sodium 133 mmol/L (136-145)
--- NOTE | 2019-11-11 09:00 | PC.NURSE ---
PT REMAINS SOMEWHAT RESTLESS, REQUESTING TO GET UP AND EAT. CT RESULTED AND NO ACUTE FINDINGS NOTED. PT GOTTEN UP TO CHAIR AND SERVED BREAKFAST. ATE ABOUT 50%. IMMEDIATELY WANTED TO GO BACK TO BED.
[2019-11-11] MEDS: NAPROXEN 250 MG TABLET 500 MG PO ×2 (09:04→16:10)
[2019-11-11] MEDS: LOSARTAN POTASSIUM 50 MG TABLET 100 MG PO (09:04)
[2019-11-11] MEDS: guaiFENesin 12 HR 600 MG TABCR 1200 MG PO ×2 (09:05→20:25)
[2019-11-11] MEDS: SERTRALINE HCL 50 MG TABLET PO (09:05)
[2019-11-11] MEDS: carvediloL 6.25 MG TABLET PO (09:05)
[2019-11-11] MEDS: FLUTICASONE PROPIONATE 0.05% NA SPR 16 GM BTL (*BKC) 1 SPRAY NASAL (09:05)
[2019-11-11] MEDS: PRAVASTATIN SODIUM 20 MG TABLET 80 MG PO (09:05)
[2019-11-11] MEDS: ASPIRIN 81 MG ENTERIC TABLET PO (09:05)
[2019-11-11] MEDS: LORATADINE 10 MG TABLET PO (09:05)
[2019-11-11] MEDS: LIDOCAINE 5% PATCH 3 PATCH TRANSDERM (09:05)
[2019-11-11] MEDS: MAGNESIUM OXIDE 400 MG TABLET PO ×3 (09:05→16:12)
--- NOTE | 2019-11-11 09:05 | P.PNIM_ITS ---
Progress Note: A&P Assessment and Plan (1) Osteoarthritis: Qualifiers: Osteoarthritis location: multiple joints Osteoarthritis type: primary Qualified Code(s): M89.49 - Other hypertrophic osteoarthropathy, multiple sites Code(s): M19.90 - Unspecified osteoarthritis, unspecified site Status: Acute Assessment and Plan: * history of spondylosis * Pt is in swing bed to continue PT/OT * Continue naproxen ,Flexeril and pain medication with lidocaine patch * Hip x-ray indicates Moderate osteoarthritis of the hips. * Lumbar spine MRI partially completed patient cannot tolerate * Pelvis CT pending * CT of the lumbar indicates-Probable acute nondisplaced S5 segment fracture. Mild lumbar compression fractures unchanged.Advanced lumbar arthropathy. 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 * Lumbar spine MRI partially completed patient cannot tolerate * Pelvis CT pending * CT of the lumbar indicates-Probable acute nondisplaced S5 segment fracture. Mild lumbar compression fractures unchanged.Advanced lumbar arthropathy. (3) Fall: Code(s): W19.XXXA - Unspecified fall, initial encounter Status: Acute Assessment and Plan: * has had multiple falls at home, including TuesdayOctober 25, leg cramps over the weekend, fell TuesdayOctober 28 as well as today TuesdayOctober 30 * CT lumbar spine wo con EXAM DATE: 10/31/2019 11:37 with FINDINGS:Probable acute nondisplaced fracture through the S5 segment of the sacrum (axial images 124-128). Again there is mild loss of all lumbar vertebral body heights. Mid and lower lumbar posterior surgical changes. Advanced lumbar facet arthropathy. (4) UTI (urinary tract infection): Code(s): N39.0 - Urinary tract infection, site not specified Status: Acute Assessment and Plan: * Culture with the growth of gram-negative bacilli sensitivity pending * Finish course of antibiotics * UA indicate positive for nitrates, WBCs and bacteria (5) Acute renal failure: Code(s): N17.9 - Acute kidney failure, unspecified Status: Acute Assessment and Plan: * Improved ? Potassium level normal ? Avoid nephrotoxic agents (6) Fracture of sacrum: Qualifiers: Encounter type: initial encounter Fracture type: closed Zone of sacrum fracture: unspecified portion of sacrum Qualified Code(s): S32.10XA - Unspecified fracture of sacrum, initial encounter for closed fracture Code(s): S32.10XA - Unspecified fracture of sacrum, initial encounter for closed fracture Status: Acute Assessment and Plan: * CT FINDINGS:Probable acute nondisplaced fracture through the S5 segment of the sacrum * Continue rehab physical therapy/Occupational Therapy (7) Urinary incontinence: Code(s): R32 - Unspecified urinary incontinence Status: Acute Assessment and Plan: * Continue oxybutynin (8) Essential (primary) hypertension: Code(s): I10 - Essential (primary) hypertension Status: Acute Assessment and Plan: ? Stable ? VS as ordered ? Will adjust medication as needed. Continue carvedilol 6.25 mg daily, losartan 50 mg p.o. daily (9) Hypomagnesemia: Code(s): E83.42 - Hypo
--- NOTE | 2019-11-11 09:05 | PM.IMPN ---
Progress Note: A&P Assessment and Plan (1) Osteoarthritis: Qualifiers: Osteoarthritis location: multiple joints Osteoarthritis type: primary Qualified Code(s): M89.49 - Other hypertrophic osteoarthropathy, multiple sites Code(s): M19.90 - Unspecified osteoarthritis, unspecified site Status: Acute Assessment and Plan: history of spondylosis Pt is in swing bed to continue PT/OT Continue naproxen ,Flexeril and pain medication with lidocaine patch Hip x-ray indicates Moderate osteoarthritis of the hips. Lumbar spine MRI partially completed patient cannot tolerate Pelvis CT pending CT of the lumbar indicates-Probable acute nondisplaced S5 segment fracture. Mild lumbar compression fractures unchanged.Advanced lumbar arthropathy. 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 Lumbar spine MRI partially completed patient cannot tolerate Pelvis CT pending CT of the lumbar indicates-Probable acute nondisplaced S5 segment fracture. Mild lumbar compression fractures unchanged.Advanced lumbar arthropathy. (3) Fall: Code(s): W19.XXXA - Unspecified fall, initial encounter Status: Acute Assessment and Plan: has had multiple falls at home, including TuesdayOctober 25, leg cramps over the weekend, fell TuesdayOctober 28 as well as today TuesdayOctober 30 CT lumbar spine wo con EXAM DATE: 10/31/2019 11:37 with FINDINGS:Probable acute nondisplaced fracture through the S5 segment of the sacrum (axial images 124-128). Again there is mild loss of all lumbar vertebral body heights. Mid and lower lumbar posterior surgical changes. Advanced lumbar facet arthropathy. (4) UTI (urinary tract infection): Code(s): N39.0 - Urinary tract infection, site not specified Status: Acute Assessment and Plan: Culture with the growth of gram-negative bacilli sensitivity pending Finish course of antibiotics UA indicate positive for nitrates, WBCs and bacteria (5) Acute renal failure: Code(s): N17.9 - Acute kidney failure, unspecified Status: Acute Assessment and Plan: Improved ? Potassium level normal ? Avoid nephrotoxic agents (6) Fracture of sacrum: Qualifiers: Encounter type: initial encounter Fracture type: closed Zone of sacrum fracture: unspecified portion of sacrum Qualified Code(s): S32.10XA - Unspecified fracture of sacrum, initial encounter for closed fracture Code(s): S32.10XA - Unspecified fracture of sacrum, initial encounter for closed fracture Status: Acute Assessment and Plan: CT FINDINGS:Probable acute nondisplaced fracture through the S5 segment of the sacrum Continue rehab physical therapy/Occupational Therapy (7) Urinary incontinence: Code(s): R32 - Unspecified urinary incontinence Status: Acute Assessment and Plan: Continue oxybutynin (8) Essential (primary) hypertension: Code(s): I10 - Essential (primary) hypertension Status: Acute Assessment and Plan: ? Stable ? VS as ordered ? Will adjust medication as needed. Continue carvedilol 6.25 mg daily, losartan 50 mg p.o. daily (9) Hypomagnesemia: Code(s): E83.42 - Hypomagnesemia Status: Acute Assessment and Plan: Resolved Continue magnesium supplements (10) Mixed hyperlipidemia: Code(s): E78.2 - Mixed hyperlipidemia Status: Acute Assessment and Plan: Continue statins Subjective Date/time seen: 11/11/19 09:05 I was called to the room this morning nurses being concerned for patient being agitated confused with poss
--- NOTE | 2019-11-11 09:08 | PC.NURSE ---
1000 PATIENT WAS RESTING PER BED AFTER COMING BACK FROM CT SCAN. WOKE UP ALL IN PANIC, SCREAMING I NEED HELP. CALMED PATIENT DOWN. PATIENT WAS ABLE TO FOCUS AND TELL NURSE SHE HAD TO GO TO THE BATHROOM AND WAS STARVING AND WANTED TO EAT. CT SCAN OF BRAIN BACK - NO ACUTE FINDINGS AND LABS BACK WITH ACUTE FINDINGS. ASSISTED PATIENT TO BSC AND BACK USING WALKER AND GAIT BELT. PATIENT WANTED TO SIT UP IN CHAIR FOR AWHILE.
--- NOTE | 2019-11-11 09:45 | PC.NURSE ---
DAUGHTER HERE REQUESTING UPDATE, INFORMED HER OF CHANGE IN CONDITION AND TESTING THAT WAS COMPLETED. SHE SAYS THAT HER MOTHER IS MORE CONFUSED AND THINKS SHE NEEDS SOMETHING TO CALM HER DOWN. link trainer AWARE AND DOES NOT WANT TO GIVE PT ANY MEDICATIONS THAT MAY MASK SYMPTOMS. DAUGHTER AWARE. PT SITTING ON THE SIDE OF THE BED, UNABLE TO TELL WHEEL PRESS CLERK WHAT SHE WANTS OR NEEDS. ASSISTED PT TO RECLINER PER DAUGHTER REQUEST. CALL LIGHT IN REACH. PT POOSITIONED FOR COMFORT.
[2019-11-11 11:43] LABS: Glucose Point of Care 141 (65-105)
[2019-11-11] MEDS: CYCLOBENZAPRINE HCL 5 MG TABLET PO (15:38)
[2019-11-11] MEDS: metFORMIN HCL 500 MG TABLET PO (16:12)
--- NOTE | 2019-11-11 16:16 | PC.NURSE ---
pt sitting up at bedside, states she doesnt know why she is so confused today, requests pain pill, took po meds with no problems
[2019-11-11 16:17] LABS: Glucose Point of Care 148 (65-105)
--- NOTE | 2019-11-11 17:00 | PC.NURSE ---
pt found up on commode upon entering room, had bm, reminded of need to call for assistance when getting up, pt cleaned up, new depends applied, sitting in chair for dinner, call light on lap
--- NOTE | 2019-11-11 18:57 | PC.NURSE ---
pt is still very confused, bed alarm on, asks about getting another dose of pain medicine, rails up
[2019-11-11] MEDS: NICOTINE (*PBKC) 21 MG PATCH 1 PATCH TRANSDERM (20:25)
[2019-11-11 21:04] LABS: Glucose Point of Care 111 (65-105)
[2019-11-12] VITALS (8 sets, daily range): BP systolic 131–141; BP diastolic 20–86; PULSE 100–109; RESP 18–24; TEMP 36.1–36.6; O2SAT 94–98
[2019-11-12] MEDS: ACETAMINOPHEN 500 MG TABLET 1000 MG PO (00:02)
[2019-11-12] MEDS: CYCLOBENZAPRINE HCL 5 MG TABLET PO ×4 (00:03→21:13)
[2019-11-12] MEDS: LEVOTHYROXINE SODIUM 112 MCG TABLET PO (06:06)
[2019-11-12] MEDS: IPRATROPIUM 0.5 MG/ALBUTEROL SULFATE 2.5 MG AMPUL.NEB 3 ML INHALATION ×2 (06:06→18:30)
[2019-11-12 06:21] LABS: Magnesium 2.1 mg/dL (1.8-2.4)
[2019-11-12] MEDS: metFORMIN HCL 500 MG TABLET 1000 MG PO (07:20)
[2019-11-12 07:24] LABS: Glucose Point of Care 152 (65-105)
[2019-11-12] MEDS: LOSARTAN POTASSIUM 50 MG TABLET 100 MG PO (09:21)
[2019-11-12] MEDS: MAGNESIUM OXIDE 400 MG TABLET PO ×3 (09:21→16:33)
[2019-11-12] MEDS: LORATADINE 10 MG TABLET PO (09:21)
[2019-11-12] MEDS: guaiFENesin 12 HR 600 MG TABCR 1200 MG PO ×2 (09:21→21:12)
[2019-11-12] MEDS: LIDOCAINE 5% PATCH 3 PATCH TRANSDERM (09:21)
[2019-11-12] MEDS: PRAVASTATIN SODIUM 20 MG TABLET 80 MG PO (09:21)
[2019-11-12] MEDS: FLUTICASONE PROPIONATE 0.05% NA SPR 16 GM BTL (*BKC) 1 SPRAY NASAL ×2 (09:21→21:26)
[2019-11-12] MEDS: SERTRALINE HCL 50 MG TABLET PO (09:22)
[2019-11-12] MEDS: NAPROXEN 250 MG TABLET 500 MG PO ×2 (09:22→16:32)
[2019-11-12] MEDS: ASPIRIN 81 MG ENTERIC TABLET PO (09:22)
[2019-11-12] MEDS: carvediloL 6.25 MG TABLET PO (09:22)
[2019-11-12 11:34] LABS: Glucose Point of Care 112 (65-105)
[2019-11-12] MEDS: metFORMIN HCL 500 MG TABLET PO (16:33)
[2019-11-12 16:38] LABS: Glucose Point of Care 134 (65-105)
--- NOTE | 2019-11-12 18:20 | PC.NURSE ---
Patient sleeping quietly in bed on right side. No signs of distress noted. Call light and belongings at side.
[2019-11-12] MEDS: NICOTINE (*PBKC) 21 MG PATCH 1 PATCH TRANSDERM (21:13)
[2019-11-13] VITALS (10 sets, daily range): BP systolic 100–125; BP diastolic 43–67; PULSE 67–111; RESP 18–20; TEMP 36–36.6; O2SAT 93–98
[2019-11-13] MEDS: IPRATROPIUM 0.5 MG/ALBUTEROL SULFATE 2.5 MG AMPUL.NEB 3 ML INHALATION ×3 (05:37→17:53)
[2019-11-13 07:20] LABS: Glucose Point of Care 169 (65-105)
[2019-11-13] MEDS: LIDOCAINE 5% PATCH 3 PATCH TRANSDERM (09:40)
[2019-11-13] MEDS: LOSARTAN POTASSIUM 50 MG TABLET 100 MG PO (09:41)
[2019-11-13] MEDS: FLUTICASONE PROPIONATE 0.05% NA SPR 16 GM BTL (*BKC) 1 SPRAY NASAL ×2 (09:41→19:59)
[2019-11-13] MEDS: guaiFENesin 12 HR 600 MG TABCR 1200 MG PO ×2 (09:41→20:03)
[2019-11-13] MEDS: PRAVASTATIN SODIUM 20 MG TABLET 80 MG PO (09:42)
[2019-11-13] MEDS: metFORMIN HCL 500 MG TABLET 1000 MG PO (09:42)
[2019-11-13] MEDS: MAGNESIUM OXIDE 400 MG TABLET PO ×3 (09:43→17:13)
[2019-11-13] MEDS: NAPROXEN 250 MG TABLET 500 MG PO ×2 (09:43→17:12)
[2019-11-13] MEDS: ASPIRIN 81 MG ENTERIC TABLET PO (09:43)
[2019-11-13] MEDS: SERTRALINE HCL 50 MG TABLET PO (09:44)
[2019-11-13] MEDS: carvediloL 6.25 MG TABLET PO (09:44)
[2019-11-13] MEDS: CYCLOBENZAPRINE HCL 5 MG TABLET PO ×2 (09:44→19:48)
[2019-11-13] MEDS: LORATADINE 10 MG TABLET PO (09:45)
[2019-11-13 12:09] LABS: Glucose Point of Care 127 (65-105)
[2019-11-13 16:43] LABS: Glucose Point of Care 125 (65-105)
[2019-11-13] MEDS: metFORMIN HCL 500 MG TABLET PO (17:12)
[2019-11-13] MEDS: NICOTINE (*PBKC) 21 MG PATCH 1 PATCH TRANSDERM (20:03)
[2019-11-13 22:11] LABS: SARS-CoV-2 RNA PCR Negative
[2019-11-14] VITALS (10 sets, daily range): BP systolic 83–131; BP diastolic 44–77; PULSE 61–100; RESP 16–20; TEMP 35.7–36; O2SAT 94–97
[2019-11-14] MEDS: IPRATROPIUM 0.5 MG/ALBUTEROL SULFATE 2.5 MG AMPUL.NEB 3 ML INHALATION ×3 (05:34→17:56)
[2019-11-14] MEDS: LEVOTHYROXINE SODIUM 112 MCG TABLET PO (06:15)
[2019-11-14] MEDS: metFORMIN HCL 500 MG TABLET 1000 MG PO (07:30)
[2019-11-14 07:33] LABS: Glucose Point of Care 97 (65-105)
[2019-11-14] MEDS: LIDOCAINE 5% PATCH 3 PATCH TRANSDERM (08:22)
[2019-11-14] MEDS: FLUTICASONE PROPIONATE 0.05% NA SPR 16 GM BTL (*BKC) 1 SPRAY NASAL ×2 (08:22→21:12)
[2019-11-14] MEDS: PRAVASTATIN SODIUM 20 MG TABLET 80 MG PO (08:23)
[2019-11-14] MEDS: guaiFENesin 12 HR 600 MG TABCR 1200 MG PO ×2 (08:23→21:10)
[2019-11-14] MEDS: NAPROXEN 250 MG TABLET 500 MG PO ×2 (08:23→17:05)
[2019-11-14] MEDS: MAGNESIUM OXIDE 400 MG TABLET PO ×3 (08:24→17:05)
[2019-11-14] MEDS: carvediloL 6.25 MG TABLET PO (08:24)
[2019-11-14] MEDS: ASPIRIN 81 MG ENTERIC TABLET PO (08:24)
[2019-11-14] MEDS: LORATADINE 10 MG TABLET PO (08:24)
[2019-11-14] MEDS: LOSARTAN POTASSIUM 50 MG TABLET 100 MG PO (08:24)
[2019-11-14] MEDS: SERTRALINE HCL 50 MG TABLET PO (08:25)
--- NOTE | 2019-11-14 14:30 | PC.NURSE ---
RESTING PER BED WITHOUT COMPLAINT. CALL KISER IN REACH.
[2019-11-14] MEDS: CYCLOBENZAPRINE HCL 5 MG TABLET PO (17:05)
[2019-11-14] MEDS: metFORMIN HCL 500 MG TABLET PO (17:05)
[2019-11-14 17:23] LABS: Glucose Point of Care 113 (65-105)
[2019-11-14 17:23] LABS: Glucose Point of Care 82 (65-105)
[2019-11-14] MEDS: NICOTINE (*PBKC) 21 MG PATCH 1 PATCH TRANSDERM (21:10)
[2019-11-14 21:17] LABS: Glucose Point of Care 124 (65-105)
[2019-11-15] VITALS: BP 133/66; PULSE 72; RESP 20; TEMP 36.3; O2SAT 93
[2019-11-15] MEDS: LEVOTHYROXINE SODIUM 112 MCG TABLET PO (05:34)
[2019-11-15] MEDS: IPRATROPIUM 0.5 MG/ALBUTEROL SULFATE 2.5 MG AMPUL.NEB 3 ML INHALATION (05:50)
[2019-11-15 05:53] VITALS: PULSE 84; RESP 20
[2019-11-15 06:06] VITALS: PULSE 80; RESP 20
--- NOTE | 2019-11-15 07:30 | PC.NURSE ---
WORKING WITH PHYSICAL THERAPY.
[2019-11-15 07:55] VITALS: BP 108/51; PULSE 84; RESP 20; TEMP 36.1; O2SAT 92
[2019-11-15] MEDS: metFORMIN HCL 500 MG TABLET 1000 MG PO (07:59)
[2019-11-15 08:02] LABS: Glucose Point of Care 125 (65-105)
[2019-11-15 08:08] LABS: Hematocrit 40.5 % (35.0-42.0); Mean Corpuscular HGB Conc 32.1 g/dL (32.0-36.0); Mean Corpuscular Hemoglobin 31.6 pg (27.0-31.0); Mean Corpuscular Volume 98.5 fL (78.0-102.0); Mean Platelet Volume 10.7 fl (9.2-11.8); Platelet Count Result 250 K/mm3 (150-420); Red Blood Count 4.11 M/mm3 (4.20-5.40); Red Cell Distribution Width 13.6 % (11.6-14.4)
[2019-11-15 08:24] LABS: Alanine Aminotransferase 26 U/L (14-59); Albumin Level 3.5 g/dL (3.4-5.0); Alkaline Phosphatase 69 U/L (46-116); Anion Gap 7 mmol/L (8-16); Aspartate Amino Transferase 17 U/L (15-37); Bilirubin,Total 0.4 mg/dL (0.00-1.00); Blood Urea Nitrogen 37 mg/dL (7-18); Calcium 9.3 mg/dL (8.5-10.1); Carbon Dioxide 29 mmol/L (21-32); Chloride 98 mmol/L (98-108); Estimated CRCL calculation 37 ml/min; Estimated Glomerular Filt Rate 46; Glucose 145 mg/dL (70-99); Osmolality Calculated 289 mOsm/kg (285-295); Sodium 134 mmol/L (136-145); Total Protein 7.8 g/dL (6.4-8.2)
[2019-11-15] MEDS: FLUTICASONE PROPIONATE 0.05% NA SPR 16 GM BTL (*BKC) 1 SPRAY NASAL (08:27)
[2019-11-15 08:28] VITALS: PULSE 84
[2019-11-15] MEDS: LORATADINE 10 MG TABLET PO (08:28)
[2019-11-15] MEDS: SERTRALINE HCL 50 MG TABLET PO (08:28)
[2019-11-15] MEDS: LIDOCAINE 5% PATCH 3 PATCH TRANSDERM (08:28)
[2019-11-15] MEDS: PRAVASTATIN SODIUM 20 MG TABLET 80 MG PO (08:28)
[2019-11-15] MEDS: MAGNESIUM OXIDE 400 MG TABLET PO (08:28)
[2019-11-15] MEDS: NAPROXEN 250 MG TABLET 500 MG PO (08:28)
[2019-11-15] MEDS: LOSARTAN POTASSIUM 50 MG TABLET 100 MG PO (08:28)
[2019-11-15] MEDS: guaiFENesin 12 HR 600 MG TABCR 1200 MG PO (08:28)
[2019-11-15] MEDS: carvediloL 6.25 MG TABLET PO (08:28)
[2019-11-15] MEDS: ASPIRIN 81 MG ENTERIC TABLET PO (08:28)
--- NOTE | 2019-11-15 09:55 | PM.DS ---
DS: Admitting Diagnosis Admitting Diagnosis Admitting Diagnosis: Rehab DS: Discharge Diagnosis Discharge Diagnosis (1) Osteoarthritis: Qualifiers: Osteoarthritis location: multiple joints Osteoarthritis type: primary Qualified Code(s): M89.49 - Other hypertrophic osteoarthropathy, multiple sites Code(s): M19.90 - Unspecified osteoarthritis, unspecified site Status: Acute Assessment and Plan: history of spondylosis Transitioning to swing bed Continue naproxen ,Flexeril and pain medication with lidocaine patch Hip x-ray indicatesModerate osteoarthritis of the hips. Lumbar spine MRI partially completed patient cannot tolerate Pelvis CT no acute fractures CT of the lumbar indicates-Probable acute nondisplaced S5 segment fracture. Mild lumbar compression fractures unchanged.Advanced lumbar arthropathy. 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 Lumbar spine MRI partially completed patient cannot tolerate Pelvis CT pending CT of the lumbar indicates-Probable acute nondisplaced S5 segment fracture. Mild lumbar compression fractures unchanged.Advanced lumbar arthropathy. (3) Fall: Code(s): W19.XXXA - Unspecified fall, initial encounter Status: Acute Assessment and Plan: has had multiple falls at home, including TuesdayOctober 25, leg cramps over the weekend, fell TuesdayOctober 28 as well as today TuesdayOctober 30 CT lumbar spine wo con EXAM DATE: 10/31/2019 11:37 with FINDINGS:Probable acute nondisplaced fracture through the S5 segment of the sacrum (axial images 124-128). Again there is mild loss of all lumbar vertebral body heights. Mid and lower lumbar posterior surgical changes. Advanced lumbar facet arthropathy. (4) UTI (urinary tract infection): Code(s): N39.0 - Urinary tract infection, site not specified Status: Acute Assessment and Plan: UA indicate positive for nitrates, WBCs and bacteria Culture with the growth of gram-negative bacilli sensitivity pending (5) Acute renal failure: Code(s): N17.9 - Acute kidney failure, unspecified Status: Acute Assessment and Plan: Improved ? Potassium level within normal limits ? Trop within normal limits ? UA indicate positive for nitrates, WBCs and bacteria blood culture with no growth ? CXR indicate Bibasilar infiltrates, left greater than right. Differential diagnosis includes atelectasis, pneumonia and mild edema. Per previous provider chest x-ray yesterday showed no effusions, the radiologist felt there was bibasilar infiltrates, but upon review by myself and Dr. Nagy we do not have any concerns for pneumonia at this time. ? BUN/Cr at baseline ? (6) Fracture of sacrum: Qualifiers: Encounter type: initial encounter Fracture type: closed Zone of sacrum fracture: unspecified portion of sacrum Qualified Code(s): S32.10XA - Unspecified fracture of sacrum, initial encounter for closed fracture Code(s): S32.10XA - Unspecified fracture of sacrum, initial encounter for closed fracture Status: Acute Assessment and Plan: CT lumbar spine wo con EXAM DATE: 10/31/2019 11:37 with FINDINGS:Probable acute nondisplaced fracture through the S5 segment of the sacrum (axial images 124-128). Again there is mild loss of all lumbar vertebral body heights. Mid and lower lumbar posterior surgical changes. Advanced lumbar facet arthropathy. Continue rehab physical therapy/Occupational Therapy and custodial (7) Urinary incontinence: Code(s): R32 - Unspecified urinary incontinence Status: Ac
[2019-11-15 11:38] LABS: Glucose Point of Care 122 (65-105)
--- NOTE | 2019-11-15 13:10 | PC.NURSE ---
REPORT CALLED TO JAMEL HASTINGS AT [facility]. PATIENT INFORMED TRANSFER WILL BE SOON. PT ANXIOUS. DAUGHTER PRESENT AND DISCUSSING SITUATION WITH PATIENT.
--- NOTE | 2019-11-15 13:40 | PC.NURSE ---
PT DISCHARGED TO [facility] PER ACCOMPANIED BY 2 OF THEIR STAFF MEMBERS AND THE PATIENT'S DAUGHTER. BELONGINGS AND ORDERS SENT WITH PATIENT. PT'S SKIN INTACT, A&OX3. PT REMAINS ANXIOUS ABOUT GOING TO THE CUSTODIAL.
--- NOTE | 2019-11-19 19:20 | PC.NURSE ---
late entry for 11/10/19 pt received neb treatment via mask. tolerated well.
--- NOTE | 2019-11-19 19:23 | PC.NURSE ---
late entry for 11/11/19 pt received neb treatment via mask. tolerated well.
== END 2019-11-15 14:39 | DRG 560 ==
PROVIDERS: Family Medicine; Nurse Practitioner; Nurse Practitioner Family; Admitting Provider Family Medicine; PCP Internal Medicine; Visit Provider Family Medicine
DX: S32.19XD Other fracture of sacrum, subsequent encounter for fracture with routine healing (principal); N39.0 Urinary tract infection, site not specified; N17.9 Acute kidney failure, unspecified; I10 Essential (primary) hypertension; E11.9 Type 2 diabetes mellitus without complications; E83.42 Hypomagnesemia; E03.9 Hypothyroidism, unspecified; E78.2 Mixed hyperlipidemia; M19.90 Unspecified osteoarthritis, unspecified site; M47.817 Spondylosis without myelopathy or radiculopathy, lumbosacral region; R41.0 Disorientation, unspecified; R32 Unspecified urinary incontinence; R45.1 Restlessness and agitation; W19.XXXD Unspecified fall, subsequent encounter; F32.9 Major depressive disorder, single episode, unspecified; Z20.828 Contact with and (suspected) exposure to other viral communicable diseases; Z87.891 Personal history of nicotine dependence
CPT/HCPCS: 36415; 70450; 80053; 83735; 85025; 85027; 85610; 87635; 94640; 97110; 97161; 97165; 97530; 97535; A9270; C9803; J0696; J1170; J2405; U0003

== ENCOUNTER 2019-12-25 22:52 | Inpatient (IN) | payer MEDICARE, SELFPAY ==
--- NOTE | ~2019-12-25 | XR_ITS ---
EXAMINATION: XR shoulder LT min 2V EXAM DATE: 12/25/2019 23:42 INDICATION: No known recent injury provided at this time. Pain of the left shoulder. TECHNIQUE: The following left shoulder projections obtained: frontal projection with internal rotatio n, frontal projection with external rotation, Grashey, and scapular Y view (4+ views). There is no p rior study for comparison. FINDINGS: No evidence of left shoulder rotator cuff calcific tendinosis. There is moderate glenohu meral and acromioclavicular joint primary osteoarthritis. There are no acute fractures or dislocation s identified. There is no subcutaneous gas. The soft tissue is unremarkable. There are no radiopa que foreign bodies. IMPRESSION: Moderate left shoulder osteoarthritis. Reviewed, dictated and finalized at location G.
--- NOTE | ~2019-12-25 | CT_ITS ---
EXAMINATION: CTA chest PE protocol DATE: 12/26/2019 00:34 INDICATION: Dyspnea. Positive d-dimer. TECHNIQUE: Computed tomography (CT) pulmonary angiogram of the chest was performed with 100 mL Omnipa que-350 intravenous contrast. Additional 3D reconstructions utilizing coronal maximum intensity proje ction (MIP) were performed. Automated exposure control and iterative reconstruction technique were em ployed. The dose-length product was 653.37 mGy-cm. COMPARISON: None FINDINGS: Excellent contrast opacification of the pulmonary arteries. There is mild streak artifact from dense contrast in the superior vena cava and right atrium. Mild scattered respiratory motion artifact. Low- attenuation intraluminal filling defects consistent with acute pulmonary emboli which extends between the lateral segmental pulmonary artery of the right middle lobe and the superior segmental pulmonary artery of the right lower lobe. Additional pulmonary emboli extending between 2 sub-segmental branch es of the right lower lobar anterobasilar segmental pulmonary artery. Could not exclude an additional pulmonary embolism in one of the subsegmental pulmonary arteries of the right upper lobe although th is appears more bandlike and favor streak artifact. No evident pulmonary emboli in the left lung. Mod erate emphysema with upper lung predominance. 8 mm nodular smooth margins in the right lower lobe. Mi ld bibasilar atelectasis. No pneumonia pulmonary edema or other pulmonary infiltrates. No pleural eff usion or pneumothorax. Cardiomegaly. No evident leftward bowing of the ventricular septum to suggest right heart strain. Atherosclerotic coronary artery calcifications and likely coronary artery stentin g. Additional atherosclerotic disease along the normal caliber aorta and many of its major branch ves sels. Ulcerative plaque along the mid descending thoracic aorta without dissection. No pathologically enlarged thoracic lymphadenopathy. Small sliding-type hiatal hernia. Small region of cortical scarri ng at the visualized upper pole of the right kidney. Mild thoracic dextroscoliosis with moderate spon dylosis. Likely chronic mild anterior wedging at T2 and T3. More recent-appearing T4 compression frac ture with <20% vertebral body height loss and with horizontal band of linear sclerosis without surrou nding edema suggesting this is subacute. IMPRESSION: 1. Pulmonary emboli with small to moderate clot burden in the right middle and lower lobes. No eviden t right heart strain. 2. Moderate emphysema with 8 mm indeterminate right lower lobe nodule. Recommend six-month follow-up low-dose noncontrast chest CT. 3. Cardiomegaly with coronary artery disease and prior coronary artery stenting. 4. Likely subacute mild T4 compression fracture. 5. Small sliding-type hiatal hernia. Reviewed, dictated and finalized at location A. IMPRESSION: 1. Pulmonary emboli with small to moderate clot burden in the right middle and lower lobes. No evident right heart strain. 2. Moderate emphysema with 8 mm indeterminate right lower lobe nodule. Recommen d six-month follow-up low-dose noncontrast chest CT. 3. Cardiomegaly with coronary artery disease and prior coronary artery stenting . 4. Likely subacute mild T4 compression fracture. 5. Small sliding-type hiatal hernia.
--- NOTE | ~2019-12-25 | XR_ITS ---
EXAMINATION: XR chest 2V EXAM DATE: 12/25/2019 23:42 INDICATION: dyspnea TECHNIQUE: Frontal and lateral projections of the chest obtained and reviewed. Comparison is made to prior examination from 11/01/2019. FINDINGS: Moderate chronic hyperinflation. Possible small amount of right basilar acute airspace dis ease, edema or infection. No confluent consolidation, pneumothorax or pleural effusion. There are bon y degenerative changes. IMPRESSION: 1. Possible small amount of right basilar acute airspace disease, clinical correlation. 2. Hyperinflation. Reviewed, dictated and finalized at location G. IMPRESSION: 1. Possible small amount of right basilar acute airspace disease, clinical cor relation. 2. Hyperinflation.
[2019-12-25 23:01] VITALS: BP 132/77; PULSE 73; RESP 20; TEMP 36.1; O2SAT 96
--- NOTE | 2019-12-25 23:01 | ECG_ITS ---
Measurements Intervals [place] Rate: 69 P: 69 MN: 191 QRS: -52 QRSD: 125 T: 47 QT: 410 QTc: 441 Interpretive Statements SINUS RHYTHM ATRIAL PREMATURE COMPLEXES LEFT AXIS DEVIATION INTRAVENTRICULAR CONDUCTION DELAY CANNOT RULE OUT SEPTAL INFARCT, AGE INDETERMINATE BORDERLINE ST ABNORMALITY- HIGH LATERAL LEADS ABNORMAL ECG Electronically Signed On 12-26-2019 6:48:02 CDT by Doug Keen D.O.
--- NOTE | 2019-12-25 23:07 | ED.SOB ---
HPI - SOB/Dyspnea General Chief Complaint: Shortness of Breath/Dyspnea Stated Complaint: AMB Time Seen by Provider: 12/25/19 23:07 Source: patient Mode of arrival: EMS Limitations: no limitations History of Present Illness HPI Narrative: 84-year-old woman who was discharged from the residential today called her granddaughter this evening because she became very short of breath and very fatigued on going to bed this evening. The EMS arrival noted that she did not have her oxygen on. She denies chest pain, cough, cold symptoms, fever, sore throat, dysuria, lightheadedness, dizziness, nausea and vomiting. She is complaining of left shoulder pain. She was hospitalized Oct 30 after some falls and a sacral fracture and has been in the residential for rehabilitation until today. Family arrived in the ED and noted that the patient has been smoking like a chimney since she got home today. MD elicited complaint: shortness of breath Pertinent past history: diabetes Onset (ago): hour(s) (1) Timing: constant Severity: moderate Relieving factors: oxygen Known history of: other ( patient on oxygen for BRADY) Associated symptoms: abdominal pain Treatment prior to arrival: oxygen Related Data Home oxygen amount: 3 liters Home Medications Medication Instructions Recorded Confirmed carvedilol 6.25 mg PO DAILY 10/26/19 12/25/19 levothyroxine 112 mcg PO DAILY 10/26/19 12/25/19 losartan 50 mg PO DAILY 10/26/19 12/25/19 pravastatin 80 mg PO DAILY 10/26/19 12/25/19 sertraline 50 mg PO DAILY 10/26/19 12/25/19 Claritin 10 mg PO DAILY 12/25/19 12/25/19 Lasix 20 mg PO DAILY 12/25/19 12/25/19 Magnesium (oxide/AA chelate) 400 mg PO TID 12/25/19 12/25/19 Mucinex Allergy 600 mg PO BID 12/25/19 12/25/19 [place] 1 tablet PO Q6-8H PRN 12/25/19 12/25/19 Symbicort 160 mcg INHALATION BID 12/25/19 12/25/19 Tylenol 1,000 mg PO DIRECTED PRN 12/25/19 12/25/19 Ventolin HFA 2 puff INHALATION DIRECTED PRN 12/25/19 12/25/19 aspirin [Adult Aspirin EC Low 81 mg PO DAILY 12/25/19 12/25/19 Strength] cyclobenzaprine 5 mg PO PRN PRN MDD 15 12/25/19 12/25/19 naproxen 500 mg PO PRN PRN MDD 1000 12/25/19 12/25/19 potassium chloride 10 meq PO DAILY 12/25/19 12/25/19 Allergies Allergy/AdvReac Type Severity Reaction Status Date / Time No Known Allergies Allergy Verified 10/31/19 11:00 Review of Systems Constitutional: Constitutional: Reports as per HPI, Denies chills, Reports fatigue and Denies fever(s) Eyes: Eyes: Denies change in vision and Denies photophobia ENT: Denies dysphagia, Denies nasal congestion and Denies sore throat Cardiovascular: Cardiovascular: Denies chest pain and Denies radiating jaw, neck or arm pain Respiratory: Respiratory: Reports as per HPI, Denies cough, Reports dyspnea and Denies wheezing Gastrointestinal: Gastrointestinal: Reports abdominal pain, Denies diarrhea, Denies nausea and Denies vomiting Genitourinary: Genitourinary: Denies nocturia and Denies dysuria Musculoskeletal: Musculoskeletal: Reports back pain, Denies arthralgias and Denies joint swelling Integumentary/Breasts: Skin/Breast: Denies pruritus, Denies erythema and Denies rash Neurologic: Denies vertigo, Denies dizziness, Denies syncope, Denies headache(s) and Denies focal weakness Hematologic/Lymphatic: Hematologic/Lymphatic: Denies easy bleeding and Denies easy bruising Allergic/Immunologic: Allergic/Immunologic: Denies lip swelling and Denies tongue swelling [facility] Past Medical History Medical History (Updated 12/25/19 @ 23:53 by Alberto Nagy MD) DMII (diabetes mellitus, type 2) Essential (primary) hypertension Hypothyroidism Major depression Mixed hyperlipidemia Osteoarthritis 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
[2019-12-25 23:28] VITALS: PULSE 73
[2019-12-25 23:30] LABS: Glucose Point of Care 143 (65-105)
[2019-12-25 23:31] LABS: Basophils Absolute Auto 0.06 K/mm3 (0.00-0.10); Basophils Percent Auto 0.8 % (0.0-1.0); Eosinophils Absolute Auto 0.25 K/mm3 (0.02-0.50); Eosinophils Percent Auto 3.3 % (1.0-6.0); Hematocrit 39.8 % (35.0-42.0); Hemoglobin 12.8 g/dL (11.7-13.8); Immature Granulocyte Absolute 0.06 K/mm3 (0.00-0.00); Immature Granulocyte Percent A 0.8 % (0.0-0.0); Lymphocytes Absolute Auto 0.83 K/mm3 (1.10-4.50); Lymphocytes Percent Auto 10.9 % (18.0-42.0); Mean Corpuscular HGB Conc 32.2 g/dL (32.0-36.0); Mean Corpuscular Hemoglobin 31.7 pg (27.0-31.0); Mean Corpuscular Volume 98.5 fL (78.0-102.0); Monocytes Absolute Auto 0.68 K/mm3 (0.10-0.90); Neutrophils Absolute Auto 5.7 K/mm3 (1.7-7.2); Neutrophils Percent Auto 75.2 % (50.0-70.0); Platelet Count Result 221 K/mm3 (150-420); Red Blood Count 4.04 M/mm3 (4.20-5.40); Red Cell Distribution Width 14.2 % (11.6-14.4); White Blood Count 7.6 K/mm3 (4.8-10.8)
[2019-12-25 23:48] LABS: INR 1.1; Partial Thromboplastin Time 27.1 SEC (22.3-31.6)
[2019-12-25 23:49] LABS: Alanine Aminotransferase 26 U/L (14-59); Albumin Level 3.5 g/dL (3.4-5.0); Alkaline Phosphatase 75 U/L (46-116); Anion Gap 8 mmol/L (8-16); Aspartate Amino Transferase 22 U/L (15-37); Bilirubin,Total 0.5 mg/dL (0.00-1.00); Blood Urea Nitrogen 20 mg/dL (7-18); Calcium 9.5 mg/dL (8.5-10.1); Carbon Dioxide 27 mmol/L (21-32); Chloride 101 mmol/L (98-108); Estimated CRCL calculation 45 ml/min; Estimated Glomerular Filt Rate 58; Glucose 143 mg/dL (70-99); Osmolality Calculated 286 mOsm/kg (285-295); Potassium 4.1 mmol/L (3.5-5.1); Sodium 136 mmol/L (136-145); Total Protein 7.4 g/dL (6.4-8.2)
[2019-12-25 23:50] LABS: D Dimer 2.18 mg/L (0.19-0.50); Troponin I < 0.02 ng/mL (0.00-0.056)
[2019-12-25 23:58] LABS: BNP 206 pg/mL (0-100)
[2019-12-26] VITALS (14 sets, daily range): BP systolic 108–156; BP diastolic 53–89; PULSE 60–84; RESP 16–28; TEMP 36.2–37.2; O2SAT 91–97; BMI 32.1
[2019-12-26] MEDS: IPRATROPIUM 0.5 MG/ALBUTEROL SULFATE 2.5 MG AMPUL.NEB 3 ML INHALATION (00:28)
[2019-12-26] MEDS: APIXABAN 2.5 MG TABLET 5 MG PO ×3 (01:57→21:39)
[2019-12-26] MEDS: SODIUM CHLORIDE 0.9% IV 1,000 ML 70 ML IV CONT (02:00)
--- NOTE | 2019-12-26 03:58 | PC.NURSE ---
Pt to floor with her sisters. Pt is alert and oriented x4 and has an unsteady gait. Pt is somewhat short of breath and has oxygen on at 2 liters per nasal cannula.
[2019-12-26 04:22] LABS: Add Urine Microscopic? YES; Appearance Urine Clear (Clear); Bilirubin Urine Negative (Negative); Blood Urine Negative (Negative); Color Urine Yellow (Yellow); Glucose Urine UA Negative (Negative); Ketones Urine Negative (Negative); Leukocyte Esterase Ur Negative LEU/UL (Negative); Nitrate Urine Positive (Negative); Protein Urine Negative (Negative); Urobilinogen Urine 0.2 mg/dL (0.2-1.0); pH Urine 7.5 (5.0-8.0)
--- NOTE | 2019-12-26 04:29 | PC.NURSE ---
Pt up to the commode with assist of one. Pt voided 350 ml of slightly cloudy urine and returned to bed with assist of one. Urine specimen sent to lab.
[2019-12-26 04:32] LABS: Bacteria Urine 4+ /hpf; RBC Urine 0-2 /hpf (0-2); Squamous Epithelial Cell Urine Few /hpf (Few)
[2019-12-26 05:49] LABS: Basophils Absolute Auto 0.07 K/mm3 (0.00-0.10); Basophils Percent Auto 1.2 % (0.0-1.0); Eosinophils Percent Auto 3.3 % (1.0-6.0); Hematocrit 37.4 % (35.0-42.0); Hemoglobin 11.9 g/dL (11.7-13.8); Immature Granulocyte Absolute 0.06 K/mm3 (0.00-0.00); Lymphocytes Absolute Auto 0.71 K/mm3 (1.10-4.50); Lymphocytes Percent Auto 11.8 % (18.0-42.0); Mean Corpuscular HGB Conc 31.8 g/dL (32.0-36.0); Mean Corpuscular Hemoglobin 31.2 pg (27.0-31.0); Mean Corpuscular Volume 97.9 fL (78.0-102.0); Mean Platelet Volume 11.3 fl (9.2-11.8); Monocytes Absolute Auto 0.59 K/mm3 (0.10-0.90); Monocytes Percent Auto 9.8 % (2.0-11.0); Neutrophils Absolute Auto 4.4 K/mm3 (1.7-7.2); Neutrophils Percent Auto 72.9 % (50.0-70.0); Platelet Count Result 207 K/mm3 (150-420); Red Blood Count 3.82 M/mm3 (4.20-5.40); Red Cell Distribution Width 14.2 % (11.6-14.4)
--- NOTE | 2019-12-26 06:15 | PC.NURSE ---
Pt given levothyroxine 112 PO as ordered.
[2019-12-26 06:17] LABS: Troponin I < 0.02 ng/mL (0.00-0.056)
[2019-12-26] MEDS: LEVOTHYROXINE SODIUM 112 MCG TABLET PO (06:17)
--- NOTE | 2019-12-26 06:34 | PC.NURSE ---
Pt up to the commode with assist of one and voided 125 ml of urine and a small brown stool. Pt back to bed with assist of one.
[2019-12-26 07:38] LABS: Glucose Point of Care 145 (65-105)
[2019-12-26] MEDS: carvediloL 6.25 MG TABLET PO ×2 (08:26→21:39)
[2019-12-26] MEDS: BUDESONIDE/FORMOTEROL (*SP) 160-4.5 MCG 6 GM INH 2 PUFF INHALATION ×2 (08:26→16:57)
[2019-12-26] MEDS: FUROSEMIDE 20 MG TABLET PO (08:27)
[2019-12-26] MEDS: FLUTICASONE PROPIONATE 0.05% NA SPR 16 GM BTL (*BKC) 1 SPRAY NASAL ×2 (08:27→21:38)
[2019-12-26] MEDS: SERTRALINE HCL 50 MG TABLET PO (08:27)
[2019-12-26] MEDS: POTASSIUM CHLORIDE 10 MEQ TABLET PO (08:27)
[2019-12-26] MEDS: LOSARTAN POTASSIUM 50 MG TABLET PO (08:27)
[2019-12-26] MEDS: LORATADINE 10 MG TABLET PO (08:27)
[2019-12-26] MEDS: PRAVASTATIN SODIUM 20 MG TABLET 80 MG PO (08:28)
[2019-12-26] MEDS: MAGNESIUM OXIDE 400 MG TABLET PO ×3 (08:28→16:57)
[2019-12-26 10:31] LABS: Troponin I < 0.02 ng/mL (0.00-0.056)
[2019-12-26 11:35] LABS: Glucose Point of Care 110 (65-105)
--- NOTE | 2019-12-26 12:22 | PM.IMHP ---
H&P: HPI History of Present Illness Date/Time: 12/26/19 12:22 <WOLF Jaeger - Last Filed: 12/26/19 12:47> Chief complaint: HYPOXIA PULMONARY EMBOLISM <WOLF Jaeger - Last Filed: 12/26/19 12:47> Narrative: Maame Morrow is a 84 year old female that presented to our ED today with complaints of shortness of breath and fatigue. 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 Patient vital signs are 121/60, 64, 16, 98.0, 95% on 3 L nasal cannula. Patient does use home oxygen at 3 L at night. Patient's labs WBC 6.0, hemoglobin 11.9, hematocrit 37.4, platelets 207, sodium 136, calcium 4.1, BUN 20, creatinine 0.92, glucose 110, troponin negative x3, BUN 206, UA indicates nitrate WBCs and bacteria, patient D-dimer elevated 2.18, patient CTA indicates Additional pulmonary emboli extending between 2 sub-segmental branches of the right lower lobar anterobasilar segmental pulmonary artery. The patient denies, CP, palpitation, extremity numbness, lightheadedness, dizziness, constipation, diarrhea, chills, or fever. Patient does admit to feeling fatigue and slight increase in shortness of breath. Had a discussion with her daughter today her daughter seems to think the patient would be more appropriate for penitentiary due to her inability to care for herself. 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 Urinary incontinence <WOLF Jaeger - Last Filed: 12/26/19 12:47> Social History Social History: Social History Smoking packs per day: 2 Smoking cigarettes per day: 40.0 Years smoked: 68 Smoking pack-years: 136.00 Smoking status: Heavy tobacco smoker Tobacco type: cigarettes Second hand tobacco smoke exposure: Yes Alcohol intake: never Substance use: never Substance use type: does not use Gender identity (if verbalized by the patient): Female Sexual Orientation (if Verbalized by the Patient): Straight or Heterosexual Spiritual care concerns: No <ESTEFANIA Jaeger-Mati - Last Filed: 12/26/19 12:47> Meds Home Medications and Allergies Home medications: Home Medications Medication Instructions Recorded Confirmed Type carvedilol 6.25 mg PO DAILY 10/26/19 12/25/19 History levothyroxine 112 mcg PO DAILY 10/26/19 12/25/19 History losartan 50 mg PO DAILY 10/26/19 12/25/19 History pravastatin 80 mg PO DAILY 10/26/19 12/25/19 History sertraline 50 mg PO DAILY 10/26/19 12/25/19 History fluticasone propionate 1 spray INTRANASAL Q12HR #10 ml 11/03/19 12/25/19 Rx metformin [Glucophage] 1,000 mg PO DAILY@0800 1 Days #2 11/03/19 12/25/19 Rx tablet metformin [Glucophage] 500 mg PO DAILY@1700 1 Days #1 11/03/19 12/25/19 Rx tablet oxybutynin chloride 5 mg PO DAILY #10 tablet 11/03/19 12/25/19 Rx nicotine [Nicoderm CQ] 1 patch TRANSDERMAL HS #30 ea 11/15/19 12/25/19 Rx Claritin 10 mg PO DAILY 12/25/19 12/25/19 History Lasix 20 mg PO DAILY 12/25/19 12/25/19 History Magnesium (oxide/AA chelate) 400 mg PO TID 12/25/19 12/25/19 History Mucinex Allergy 600 mg PO BID 12/25/19 12/25/19 History Latta 1 tablet PO Q6-8H PRN 12/25/19 12/25/19 History Symbicort 160 mcg INHALATION BID 12/25/19 12/25/19 Hi
[2019-12-26] MEDS: CYCLOBENZAPRINE HCL 5 MG TABLET PO ×2 (13:01→21:38)
--- NOTE | 2019-12-26 13:12 | PHAR ---
12/26/19: pt. takes her carvedilol 6.25mg bid per [facility]. changing dose to bid per freddie shaw. tls
[2019-12-26 17:06] LABS: Glucose Point of Care 126 (65-105)
[2019-12-26] MEDS: ACETAMINOPHEN 500 MG TABLET 1000 MG PO (17:28)
[2019-12-26] MEDS: NICOTINE (*PBKC) 21 MG PATCH 1 PATCH TRANSDERM (21:37)
[2019-12-26] MEDS: guaiFENesin 12 HR 600 MG TABCR PO (21:38)
[2019-12-27] VITALS: BP 106/47; PULSE 64; RESP 18; TEMP 36.9; O2SAT 94
[2019-12-27 04:00] VITALS: BP 111/60; PULSE 70; RESP 18; TEMP 37.1; O2SAT 95
[2019-12-27 05:54] LABS: Anion Gap 6 mmol/L (8-16); Blood Urea Nitrogen 16 mg/dL (7-18); Calcium 9.1 mg/dL (8.5-10.1); Carbon Dioxide 31 mmol/L (21-32); Chloride 101 mmol/L (98-108); Estimated CRCL calculation 44 ml/min; Estimated Glomerular Filt Rate 59; Glucose 135 mg/dL (70-99); Osmolality Calculated 289 mOsm/kg (285-295); Potassium 4.3 mmol/L (3.5-5.1); Sodium 138 mmol/L (136-145)
[2019-12-27] MEDS: CYCLOBENZAPRINE HCL 5 MG TABLET PO (05:54)
[2019-12-27] MEDS: LEVOTHYROXINE SODIUM 112 MCG TABLET PO (05:54)
[2019-12-27 08:00] VITALS: BP 134/49; PULSE 67; PULSE 76; RESP 18; TEMP 36.5; O2SAT 97
[2019-12-27 08:13] LABS: Glucose Point of Care 148 (65-105)
[2019-12-27] MEDS: FLUTICASONE PROPIONATE 0.05% NA SPR 16 GM BTL (*BKC) 1 SPRAY NASAL (09:30)
[2019-12-27] MEDS: BUDESONIDE/FORMOTEROL (*SP) 160-4.5 MCG 6 GM INH 2 PUFF INHALATION (09:30)
[2019-12-27 09:32] VITALS: PULSE 76
[2019-12-27] MEDS: carvediloL 6.25 MG TABLET PO (09:32)
[2019-12-27] MEDS: PRAVASTATIN SODIUM 20 MG TABLET 80 MG PO (09:32)
[2019-12-27] MEDS: APIXABAN 2.5 MG TABLET 5 MG PO (09:32)
[2019-12-27] MEDS: LORATADINE 10 MG TABLET PO (09:33)
[2019-12-27] MEDS: MAGNESIUM OXIDE 400 MG TABLET PO (09:33)
[2019-12-27] MEDS: POTASSIUM CHLORIDE 10 MEQ TABLET PO (09:33)
[2019-12-27] MEDS: LOSARTAN POTASSIUM 50 MG TABLET PO (09:33)
[2019-12-27] MEDS: FUROSEMIDE 20 MG TABLET PO (09:33)
[2019-12-27] MEDS: guaiFENesin 12 HR 600 MG TABCR PO (09:33)
[2019-12-27] MEDS: SERTRALINE HCL 50 MG TABLET PO (09:33)
--- NOTE | 2019-12-27 10:17 | P.DS_ITS ---
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 * Previous CT of the lumbar indicates-Probable acute nondisplaced S5 segment fracture. Mild lumbar compression fractures unchanged.Advanced lumbar arthropathy. (4) Osteoarthritis: Qualifiers: Osteoarthritis location: multiple joints Osteoarthritis type: primary Qualified Code(s): M89.49 - Other hypertrophic osteoarthropathy, multiple sites Code(s): M19.90 - Unspecified osteoarthritis, unspecified site Status: Acute Assessment and Plan: * history of spondylosis * Continue ,Flexeril and pain medication * Previous hip x-ray indicatesModerate osteoarthritis of the hips. * Previous CT of the lumbar indicates-Probable acute nondisplaced S5 segment fracture. Mild lumbar compression fractures unchanged.Advanced lumbar arthropathy. (5) UTI (urinary tract infection): Code(s): N39.0 - Urinary tract infection, site not specified Status: Acute Assessment and Plan: * UA positive for nitrates, WBCs and bacteria * Started Bactrim twice daily for 4 days (6) Urinary incontinence: Code(s): R32 - Unspecified urinary incontinence Status: Acute Assessment and Plan: * Continue oxybutynin (7) Essential (primary) hypertension: Code(s): I10 - Essential (primary) hypertension Status: Acute Assessment and Plan: * Stable * VS as ordered * Continue carvedilol 6.25 mg daily, losartan 50 mg p.o. daily (8) Mixed hyperlipidemia: Code(s): E78.2 - Mixed hyperlipidemia Status: Acute Assessment and Plan: * Continue statins (9) Pulmonary embolism: Code(s): I26.99 - Other pulmonary embolism without acute cor pulmonale Status: Acute Assessment and Plan: * CTA indicates acute pulmonary emboli which extends between the lateral seg mental pulmonary artery of the right middle lobe and the superior segmental pulmonary artery of the right lower lobe. Additional pulmonary emboli extending between 2 sub-segmental branches of the right lower lobar anterobasilar segmental pulmonary artery * Patient started on Eliquis * Patient will discharge to nursing to monitor medication DS: Summary Time Spent with Patient Time attestation: Total time spent providing and/or coordinating discharge services:60 Exam Narrative: Exam Narrative: GENERAL: This is an morbidly obese female in no apparent distress. HEAD: normocephalic, atraumatic. EYES: PERRL. Sclera clear/white. Vision is grossly intact. EARS: External ears normal, auditory canals clear and without drainage, TMs normal without perforation. Hearing grossly intact. NOSE: External nose normal with no obvious nasal discharge, nares without redness, no rhinorrhea.
--- NOTE | 2019-12-27 10:17 | PM.DS ---
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 Previous CT of the lumbar indicates-Probable acute nondisplaced S5 segment fracture. Mild lumbar compression fractures unchanged.Advanced lumbar arthropathy. (4) Osteoarthritis: Qualifiers: Osteoarthritis location: multiple joints Osteoarthritis type: primary Qualified Code(s): M89.49 - Other hypertrophic osteoarthropathy, multiple sites Code(s): M19.90 - Unspecified osteoarthritis, unspecified site Status: Acute Assessment and Plan: history of spondylosis Continue ,Flexeril and pain medication Previous hip x-ray indicatesModerate osteoarthritis of the hips. Previous CT of the lumbar indicates-Probable acute nondisplaced S5 segment fracture. Mild lumbar compression fractures unchanged.Advanced lumbar arthropathy. (5) UTI (urinary tract infection): Code(s): N39.0 - Urinary tract infection, site not specified Status: Acute Assessment and Plan: UA positive for nitrates, WBCs and bacteria Started Bactrim twice daily for 4 days (6) Urinary incontinence: Code(s): R32 - Unspecified urinary incontinence Status: Acute Assessment and Plan: Continue oxybutynin (7) Essential (primary) hypertension: Code(s): I10 - Essential (primary) hypertension Status: Acute Assessment and Plan: Stable VS as ordered Continue carvedilol 6.25 mg daily, losartan 50 mg p.o. daily (8) Mixed hyperlipidemia: Code(s): E78.2 - Mixed hyperlipidemia Status: Acute Assessment and Plan: Continue statins (9) Pulmonary embolism: Code(s): I26.99 - Other pulmonary embolism without acute cor pulmonale Status: Acute Assessment and Plan: CTA indicates acute pulmonary emboli which extends between the lateral segmental pulmonary artery of the right middle lobe and the superior segmental pulmonary artery of the right lower lobe. Additional pulmonary emboli extending between 2 sub-segmental branches of the right lower lobar anterobasilar segmental pulmonary artery Patient started on Eliquis Patient will discharge to nursing to monitor medication DS: Summary Time Spent with Patient Time attestation: Total time spent providing and/or coordinating discharge services:60 Exam Narrative: Exam Narrative: GENERAL: This is an morbidly obese female in no apparent distress. HEAD: normocephalic, atraumatic. EYES: PERRL. Sclera clear/white. Vision is grossly intact. EARS: External ears normal, auditory canals clear and without drainage, TMs normal without perforation. Hearing grossly intact. NOSE: External nose normal with no obvious nasal discharge, nares without redness, no rhinorrhea. THROAT: Mucous membranes moist, posterior pharynx clear. NECK: Neck supple, non-tender without lymphadenopathy, masses or thyromegaly. CARDIOVASCULAR: Regular rate and rhythm without murmurs, gallops, or rubs. RESPIRATORY: All hager decreased GASTROINTESTINAL: Abdomen soft, non-tender, nondistended. Bowel sounds are active. No hepato-splenomegaly, or palpable masses. No guarding. SKIN: warm, intact with no suspicious lesions or rash, good texture and tur
[2019-12-27 11:51] LABS: Glucose Point of Care 111 (65-105)
[2019-12-27 12:00] VITALS: BP 136/62; PULSE 84; PULSE 87; RESP 18; TEMP 36.6; O2SAT 96
--- NOTE | 2020-01-04 14:22 | PC.NURSE ---
prison staff states their were no issues with the discharge instructions.
== END 2019-12-27 13:53 | DRG 176 ==
LOC: CHSED 22:57 → CHS2ND 12-26 01:09
PROVIDERS: Admitting Provider Emergency Medicine; Emergency Provider Emergency Medicine; PCP Internal Medicine; Visit Provider Emergency Medicine
DX: I26.99 Other pulmonary embolism without acute cor pulmonale (principal); N39.0 Urinary tract infection, site not specified; R09.02 Hypoxemia; I10 Essential (primary) hypertension; E11.9 Type 2 diabetes mellitus without complications; E03.9 Hypothyroidism, unspecified; M47.817 Spondylosis without myelopathy or radiculopathy, lumbosacral region; M19.90 Unspecified osteoarthritis, unspecified site; B96.1 Klebsiella pneumoniae [K. pneumoniae] as the cause of diseases classified elsewhere; F17.210 Nicotine dependence, cigarettes, uncomplicated; F32.9 Major depressive disorder, single episode, unspecified; Z99.81 Dependence on supplemental oxygen
CPT/HCPCS: 36415; 71046; 71275; 73030; 80048; 80053; 81001; 82948; 83880; 84484; 85025; 85380; 85610; 85730; 87077; 87086; 87088; 87186; 93005; 94640; 99285; A9270; J7030; Q9965

== ENCOUNTER 2020-02-15 13:53 | Emergency (ER) | payer MEDICARE, SELFPAY ==
[2020-02-15 13:53] VITALS: BP 78/33; PULSE 73; RESP 20; TEMP 35.7; O2SAT 95
[2020-02-15] MEDS: SODIUM CHLORIDE 0.9% IV 1,000 ML 999 ML IV CONT ×2 (14:28→15:15)
[2020-02-15 14:42] LABS: Hematocrit 32.6 % (35.0-42.0); Hemoglobin 10.7 g/dL (11.7-13.8); Mean Corpuscular HGB Conc 32.8 g/dL (32.0-36.0); Mean Corpuscular Hemoglobin 30.5 pg (27.0-31.0); Mean Corpuscular Volume 92.9 fL (78.0-102.0); Mean Platelet Volume 10.6 fl (9.2-11.8); Platelet Count Result 457 K/mm3 (150-420); Red Blood Count 3.51 M/mm3 (4.20-5.40); Red Cell Distribution Width 14.2 % (11.6-14.4); White Blood Count 9.9 K/mm3 (4.8-10.8)
--- NOTE | 2020-02-15 14:50 | ECG_ITS ---
Measurements Intervals Bryant Rate: 69 P: -75 IN: 155 QRS: -50 QRSD: 122 T: 29 QT: 447 QTc: 481 Interpretive Statements SINUS RHYTHM ATRIAL PREMATURE COMPLEX LEFT ANTERIOR FASCICULAR BLOCK CANNOT RULE OUT SEPTAL INFARCT, AGE INDETERMINATE BORDERLINE ST ABNORMALITY- LAT/HIGH LAT LEADS ABNORMAL ECG Electronically Signed On 02-15-2020 15:39:42 [employer] by Dogu Keen D.O.
--- NOTE | 2020-02-15 14:52 | ED.GIBLEED ---
HPI - GI Bleed General Chief complaint: GI Bleed Stated complaint: ambulance Time Seen by Provider: 02/15/20 14:30 Source: patient and family Mode of arrival: wheelchair Limitations: no limitations History of Present Illness HPI Narrative: 84-year-old woman brought [facility] by [facility] for passing large (fist size) clots per rectum. Patient told her daughter that it started yesterday however the [facility] staff noticed today. Patient denies any chest, abdomen or rectal pain but complains of feeling warm and being short of breath. She was recently diagnosed with COVID-19 and [facility] the [facility] a [facility]. She takes apixaban for pulmonary emboli. MD complaint: gross hematochezia Onset (ago): day(s) (1) Pain Consistency: intermittent Severity: severe Relieving factors: none Exacerbating factors: none Context: history of GI bleed and other ( History of rectal cancer for which she received radiation therapy approximately 2 years ago.) Related Data Home Medications Medication Instructions Recorded Confirmed carvedilol 6.25 mg PO BID 10/26/19 02/15/20 levothyroxine 112 mcg PO DAILY 10/26/19 02/15/20 losartan 50 mg PO DAILY 10/26/19 02/15/20 pravastatin 80 mg PO HS 10/26/19 02/15/20 sertraline 50 mg PO DAILY 10/26/19 02/15/20 Claritin 10 mg PO DAILY 12/25/19 02/15/20 Magnesium (oxide/AA chelate) 400 mg PO TID 12/25/19 02/15/20 Mucinex Allergy 600 mg PO BID 12/25/19 02/15/20 aspirin 81 mg PO DAILY 12/25/19 02/15/20 naproxen 500 mg PO PRN PRN MDD 1000 12/25/19 02/15/20 potassium chloride 10 meq PO DAILY 12/25/19 02/15/20 albuterol sulfate [Ventolin HFA] 2 puff INHALATION QID PRN 02/15/20 02/15/20 budesonide-formoterol [Symbicort] 2 puff INHALATION Q12H 02/15/20 02/15/20 fluticasone propionate 2 spray INTRANASAL Q12HR 02/15/20 02/15/20 furosemide [Lasix] 20 mg PO EVERY OTHER DAY 02/15/20 02/15/20 Allergies Allergy/AdvReac Type Severity Reaction Status Date / Time carbamazepine [From Tegretol] Allergy Other Verified 12/26/19 02:43 Review of Systems Constitutional: Constitutional: Denies chills, Reports fatigue, Denies fever(s) and Reports weakness ENT: Denies dysphagia, Denies nasal congestion and Denies sore throat Cardiovascular: Cardiovascular: Denies chest pain and Denies radiating jaw, neck or arm pain Respiratory: Respiratory: Denies cough, Denies dyspnea and Denies wheezing Gastrointestinal: Gastrointestinal: Denies abdominal pain, Denies diarrhea, Denies nausea and Denies vomiting Integumentary/Breasts: Skin/Breast: Denies pruritus, Denies erythema and Denies rash Neurologic: Denies vertigo, Denies dizziness and Denies syncope Allergic/Immunologic: Allergic/Immunologic: Denies lip swelling and Denies tongue swelling PMFSH Past Medical History Medical History (Updated 02/15/20 @ 18:26 by Alberto Nagy MD) DMII (diabetes mellitus, type 2) Essential (primary) hypertension Hypothyroidism Major depression Mixed hyperlipidemia Osteoarthritis Pulmonary embolism Rectal cancer treated with radiation. Renal failure 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 Urinary incontinence Social History Social History Smoking packs per day: 2 Smoking cigarettes per day: 40.0 Years smoked: 68 Smoking pack-years: 136.00 Smoking status: Heavy tobacco smoker Tobacco type: cigarettes Second hand tobacco smoke exposure: Yes Alcohol intake: never Substance use: never Substance use type: does not use Gender identity (if verbalized by the patient): Female Spiritual care concerns: No Exam Const: General: alert Nutritional Appearance: obese Orientation/consciousness: patient oriented x3 Other: Anxious tearful, pale. HENMT: Head: normal to inspection Ears: external ears normal, TM's normal bilaterally and EAC's normal Gene
[2020-02-15 14:57] LABS: INR 1.1; Partial Thromboplastin Time 27.6 SEC (23.90-30.70); Prothrombin Time 12.6 Seconds (9.50-12.10)
[2020-02-15 15:05] LABS: Band Neutrophils Percent 0 % (0-6); Eosinophils Percent Manual 0 % (1-6); Lymphocytes Absolute Manual 0.59 K/mm3 (1.1-4.5); Lymphocytes Percent Manual 6 % (18-44); Monocytes Absolute Manual 0.49 K/mm3 (0.1-0.90); Monocytes Percent Manual 5 % (3-9); Neutrophils Absolute Manual 8.31 K/mm3 (1.7-7.2); Neutrophils Percent Manual 84 % (46-73); Total Cells Counted 100
[2020-02-15 15:06] LABS: Basophils Absolute Manual 0.19 K/mm3 (0-0.1); Basophils Percent Manual 2 % (0-1); Myelocytes Percent 3 %; Platelet Estimate Adequate (Adequate)
[2020-02-15 15:09] LABS: Alanine Aminotransferase 21 U/L (14-59); Albumin Level 2.5 g/dL (3.4-5.0); Alkaline Phosphatase 60 U/L (46-116); Ammonia 21 umol/L (11-32); Aspartate Amino Transferase 32 U/L (15-37); Bilirubin,Total 0.6 mg/dL (0.00-1.00); Blood Urea Nitrogen 24 mg/dL (7-18); Calcium 8.8 mg/dL (8.5-10.1); Carbon Dioxide 21 mmol/L (21-32); Estimated Glomerular Filt Rate 52; Glucose 203 mg/dL (70-99); Lipase 230 U/L (73-393); Magnesium 1.8 mg/dL (1.8-2.4); Total Protein 6.8 g/dL (6.4-8.2)
[2020-02-15 15:15] LABS: Anion Gap 10 mmol/L (8-16); Chloride 94 mmol/L (98-108); Osmolality Calculated 270 mOsm/kg (285-295); Potassium 5.6 mmol/L (3.5-5.1); Sodium 125 mmol/L (136-145)
[2020-02-15 15:15] LABS: Troponin I 7.7 ng/L (0.00-60.4)
[2020-02-15 16:11] LABS: Occult Blood Positive (Negative)
[2020-02-15 16:12] LABS: Add Urine Microscopic? YES; Appearance Urine Cloudy (Clear); Bilirubin Urine 1+ (Negative); Blood Urine Negative (Negative); Color Urine Yellow (Yellow); Glucose Urine UA Negative (Negative); Ketones Urine Trace (Negative); Leukocyte Esterase Ur Trace LEU/UL (Negative); Nitrate Urine Negative (Negative); Protein Urine Trace (Negative); Specific Grav Ur 1.025 (1.010-1.020); Urobilinogen Urine 0.2 mg/dL (0.2-1.0); pH Urine 5.5 (5.0-8.0)
[2020-02-15 16:17] LABS: Bacteria Urine 4+ /hpf; Squamous Epithelial Cell Urine Few /hpf (Few); WBC Urine 21-30 /hpf (0-3)
[2020-02-15 17:30] VITALS: BP 84/39; PULSE 93; RESP 18; TEMP 36.2; O2SAT 92
[2020-02-15 17:40] LABS: Hematocrit 28.8 % (35.0-42.0); Hemoglobin 9.1 g/dL (11.7-13.8)
[2020-02-15 17:50] VITALS: BP 95/49; PULSE 87; RESP 14; TEMP 35.8; O2SAT 97
[2020-02-15 17:56] LABS: Troponin I 8.6 ng/L (0.00-60.4)
[2020-02-15 19:00] VITALS: BP 75/38; PULSE 87; RESP 20; TEMP 35.8; O2SAT 98
== END 2020-02-15 19:02 | disposition short-term general hospital (02) ==
PROVIDERS: Emergency Provider Emergency Medicine; PCP Internal Medicine
DX: K92.2 Gastrointestinal hemorrhage, unspecified (principal); I95.9 Hypotension, unspecified; Z79.01 Long term (current) use of anticoagulants; I26.99 Other pulmonary embolism without acute cor pulmonale; N39.0 Urinary tract infection, site not specified; E11.9 Type 2 diabetes mellitus without complications; E03.9 Hypothyroidism, unspecified; F17.200 Nicotine dependence, unspecified, uncomplicated
CPT/HCPCS: 36415; 36430; 80053; 81001; 82140; 82272; 83690; 83735; 84484; 85014; 85018; 85025; 85610; 85730; 86850; 86900; 86901; 86920; 87040; 87077; 87086; 87088; 87186; 93005; 96360; 96361; 99284; 99285; J7030; J7050; P9016

== ENCOUNTER 2020-03-11 06:27 | Outpatient (NON) | payer MEDICARE, SELFPAY ==
[2020-03-11 06:40] LABS: Basophils Absolute Auto 0.03 K/mm3 (0.00-0.10); Basophils Percent Auto 0.4 % (0.0-1.0); Eosinophils Absolute Auto 0.19 K/mm3 (0.02-0.50); Eosinophils Percent Auto 2.5 % (1.0-6.0); Hematocrit 34.1 % (35.0-42.0); Hemoglobin 11.1 g/dL (11.7-13.8); Immature Granulocyte Absolute 0.11 K/mm3 (0.00-0.00); Immature Granulocyte Percent A 1.4 % (0.0-0.0); Lymphocytes Absolute Auto 0.56 K/mm3 (1.10-4.50); Lymphocytes Percent Auto 7.3 % (18.0-42.0); Mean Corpuscular HGB Conc 32.6 g/dL (32.0-36.0); Mean Corpuscular Hemoglobin 29.6 pg (27.0-31.0); Mean Corpuscular Volume 90.9 fL (78.0-102.0); Mean Platelet Volume 11.8 fl (9.2-11.8); Monocytes Absolute Auto 0.77 K/mm3 (0.10-0.90); Neutrophils Percent Auto 78.4 % (50.0-70.0); Platelet Count Result 206 K/mm3 (150-420); Red Blood Count 3.75 M/mm3 (4.20-5.40); Red Cell Distribution Width 15.9 % (11.6-14.4); White Blood Count 7.7 K/mm3 (4.8-10.8)
[2020-03-11 06:46] LABS: Add Urine Microscopic? YES; Appearance Urine Clear (Clear); Bilirubin Urine Negative (Negative); Blood Urine Negative (Negative); Color Urine Yellow (Yellow); Glucose Urine UA Negative (Negative); Ketones Urine Negative (Negative); Leukocyte Esterase Ur Trace (Negative); Nitrate Urine Negative (Negative); Protein Urine Negative (Negative); Specific Grav Ur <= 1.005 (1.010-1.020); Urobilinogen Urine 0.2 mg/dL (0.2-1.0)
[2020-03-11 06:57] LABS: RBC Urine 0-2 /hpf (0-2); WBC Urine 21-30 /hpf (0-3)
[2020-03-11 06:58] LABS: Bacteria Urine 4+ /hpf; Budding Yeast Urine Present /hpf; Mucus Urine Few /lpf; Squamous Epithelial Cell Urine None seen /hpf (Few)
[2020-03-11 06:59] LABS: BNP 76 pg/mL (0-100)
[2020-03-11 07:04] LABS: Alanine Aminotransferase 20 U/L (14-59); Albumin Level 2.5 g/dL (3.4-5.0); Alkaline Phosphatase 56 U/L (46-116); Anion Gap 6 mmol/L (8-16); Aspartate Amino Transferase 20 U/L (15-37); Bilirubin,Total 0.5 mg/dL (0.00-1.00); Blood Urea Nitrogen 29 mg/dL (7-18); Calcium 8.5 mg/dL (8.5-10.1); Carbon Dioxide 31 mmol/L (21-32); Chloride 93 mmol/L (98-108); Estimated Glomerular Filt Rate 35; Ferritin 177 ng/mL (8-252); Free T4 Free Thyroxine 1.44 ng/dL (0.76-1.46); Glucose 93 mg/dL (70-99); Iron 37 ug/dL (50-170); Osmolality Calculated 275 mOsm/kg (285-295); Percent Iron Saturation 19 % (12-57); Potassium 3.7 mmol/L (3.5-5.1); Sodium 130 mmol/L (136-145); Thyroid Stimulating Hormone 3.53 uIU/mL (0.36-3.74); Total Protein 5.6 g/dL (6.4-8.2)
== END 2020-03-11 06:28 ==
LOC: CHSLAB 06:29
PROVIDERS: Visit Provider Internal Medicine
DX: I50.9 Heart failure, unspecified (principal); J44.9 Chronic obstructive pulmonary disease, unspecified; E11.9 Type 2 diabetes mellitus without complications; R60.9 Edema, unspecified; I10 Essential (primary) hypertension; E03.9 Hypothyroidism, unspecified; N39.0 Urinary tract infection, site not specified
CPT/HCPCS: 36415; 80053; 81001; 82728; 83540; 83550; 83880; 84439; 84443; 85025; 87077; 87086; 87088; 87186

== ENCOUNTER 2020-03-24 09:38 | Outpatient (NON) | payer OTHER, SELFPAY ==
[2020-03-24 10:15] LABS: Add Urine Microscopic? YES; Appearance Urine Cloudy (Clear); Bilirubin Urine Negative (Negative); Blood Urine 1+ (Negative); Color Urine Yellow (Yellow); Glucose Urine UA Negative (Negative); Ketones Urine Negative (Negative); Leukocyte Esterase Ur 2+ (Negative); Nitrate Urine Negative (Negative); Protein Urine Negative (Negative); Urobilinogen Urine 0.2 mg/dL (0.2-1.0); pH Urine 5.5 (5.0-8.0)
[2020-03-24 10:33] LABS: Squamous Epithelial Cell Urine Rare /hpf (Few); WBC Urine 31-50 /hpf (0-3)
[2020-03-24 10:34] LABS: Bacteria Urine 3+ /hpf
== END 2020-03-24 09:39 ==
PROVIDERS: Visit Provider Internal Medicine
DX: N39.0 Urinary tract infection, site not specified (principal)
CPT/HCPCS: 81001; 87077; 87086; 87088; 87186